=== PATIENT | male | born 1965 | race Caucasian/White ===

== ENCOUNTER 2016-11-15 15:04 | Inpatient (IN) | payer OTHER ==
[~2016-11-15] VITALS: Ht 167.6 cm; Wt 53.2 kg
[~2016-11-15 15:04] MED LIST: PERC5TAB12 PO
[2016-11-15 15:28] VITALS: BP 142/111; PULSE 91; RESP 12; TEMP 98.8; O2SAT 98
[2016-11-15] MEDS ORDERED: SODIUM CHLOR 0.9% 1000 ML INJ 1,000 ML IV SCH (16:23)
[2016-11-15] MEDS ORDERED: SODIUM CHLORIDE 0.9% FLUSH 10 ML FLUSH IV FLUSH PRN ×2 (16:30→18:30)
[2016-11-15 16:44] LABS: AUTOMATED NEUTROPHIL # 3.3 TH/MM3 (1.8-7.7); BASOPHIL # 0.2 TH/MM3 (0-0.2); BASOPHIL % 4.6 % (0.0-2.0); EOSINOPHIL # 0.1 TH/MM3 (0-0.4); EOSINOPHIL % 1.6 % (0.0-4.0); HEMATOCRIT 45.2 % (39.0-51.0); HEMO FLAGS DIFF FINAL; LYMPH % 21.4 % (9.0-44.0); LYMPHOCYTE # 1.1 TH/MM3 (1.0-4.8); MEAN CELL VOLUME 101.1 FL (80.0-100.0); MEAN CORPUSCULAR HEMOGLOBIN 34.3 PG (27.0-34.0); MONO % 9.7 % (0.0-8.0); NEUT % 62.7 % (16.0-70.0); PLATELET COUNT 267 TH/MM3 (150-450); RED BLOOD COUNT 4.47 MIL/MM3 (4.50-5.90); RED CELL DISTRIBUTION WIDTH 14.2 % (11.6-17.2); WHITE BLOOD COUNT 5.2 TH/MM3 (4.0-11.0)
--- NOTE | 2016-11-15 16:46 | PD ---
HPI Chief Complaint: ENT Complaint Time Seen by Provider: 16:33 Travel History International Travel<30 days: No Contact w/Intl Traveler<30days: No Traveled to known affect area: No History of Present Illness HPI 51-year-old male presents to the emergency department for evaluation of tender painful mass to left neck for 2 months. Patient states that the mass was smaller when he noticed about 2 months ago. States it has been getting larger and more painful over the past 2 months. States that today when eating he noticed that he has some pain with swallowing. He denies any fever, chills, nausea, vomiting, diarrhea, chest pain, shortness of breath, difficulty breathing. He states he has a smoking history of more than 30 years. Denies any other medical conditions. No other complaints. PFSH Past Medical History Medical History: Denies Significant Hx Arthritis: No Blood Disorders: No Heart Rhythm Problems: No Cancer: No Cardiovascular Problems: Yes High Cholesterol: No Chest Pain: No Congestive Heart Failure: No Diminished Hearing: No Endocrine: No Genitourinary: No Hypertension: No Immune Disorder: No Musculoskeletal: Yes (LEFT THUMB DISLOCATE) Neurologic: No Reproductive: No Respiratory: No Immunizations Current: Yes Myocardial Infarction: No Tetanus Vaccination: > 5 Years Influenza Vaccination: No Past Surgical History Abdominal Surgery: Yes (RIGHT HERNIA REPAIR) Cardiac Surgery: Yes (HEART SURGERY AN ON AORTIC [id number]) Ear Surgery: No Endocrine Surgery: No Eye Surgery: Yes Genitourinary Surgery: No Gynecologic Surgery: No Oral Surgery: No Thoracic Surgery: No Other Surgery: Yes (CABG) Social History Alcohol Use: No (Socially) Tobacco Use: Yes (1 PPD) Substance Use: No Allergies-Medications (Allergen,Severity, Reaction): Coded Allergies: No Known Allergies (Verified , 11/15/16) Reported Meds & Prescriptions Reported Meds & Active Scripts Active No Active Prescriptions or Reported Medications Review of Systems Except as stated in HPI: all other systems reviewed are Neg Physical Exam Narrative GENERAL: Well-nourished and well-developed pleasant patient in no acute distress who is nontoxic appearing. SKIN: Warm and dry. HEAD: Normocephalic and atraumatic. EYES: No injection, drainage, or hyphema noted. PERRLA. EOMI. ENT: No nasal drainage noted. Oropharynx is clear and the TMs are normal with good landmarks. NECK: Supple and the trachea is midline. Left anterior neck with tender mass approximately 7 cm in diameter. There is a mass about 2 cm in diameter to the posterior neck patient reports has been present for years. CARDIOVASCULAR: Regular rate and rhythm. RESPIRATORY: Breath sounds are equal bilaterally with no accessory muscle use, wheezing, rhonchi, or crackles. GASTROINTESTINAL: Abdomen is soft, non-tender, and nondistended. MUSCULOSKELETAL: No obvious deformities, swelling, cyanosis, or ecchymosis is present throughout the upper and lower extremities. Patient has full range of motion without any signs of neurovascular compromise. NEUROLOGICAL: Awake, alert, and oriented. Normal speech and gait. Cranial nerves are grossly intact. Data Data Last Documented VS Vital Signs Date Time Temp Pulse Resp B/P Pulse Ox O2 Delivery O2 Flow Rate FiO2 11/15/16 17:35 71 18 164/93 98 Room Air 11/15/16 15:28 98.8 Orders Basic Metabolic Panel (Bmp) (11/15/16 16:23) Complete Blood Count With Diff (11/15/16 16:23) Iv Access Insert/Monitor (11/15/16 16:23) Sodium Chlor 0.9% 1000 Ml Inj (Ns 1000 M (11/15/16 16:23) Sodium Chloride 0.9% Flush (Ns Flush) (11/15/16 16:30) Ct Soft Tiss Neck W Iv Cont (11/15/16 ) Iohexol 350 Inj (Omnipaque 350 Inj) (11/15/16 17:30) Admit To Inpatient (11/15/16 ) Vital Signs (Adult) Q4H (11/15/16 18:26) Activity Oob With Assistance (11/15/16 18:26) Diet Regular Basic (11/15/16 Dinner) Sodium Chloride 0.9% Flush (Ns Flush) (11/15/16 18:30) Sodium Chloride 0.9% Flush (Ns Flush) (11/15/16 21:00) Acetaminophen (Tylenol) (11/15/16 18:30) Ondansetron Inj (Zofran Inj) (11/15/16 18:30) Magnesium Hydroxide Liq (Milk Of Magnesi (11/15/16 18:30) Basic Metabolic Panel (Bmp) (11/16/16 06:00) Complete Blood Count With Diff (11/16/16 06:00) Scd Bilateral/Knee High SWAPNIL.BID (11/15/16 18:26) Naloxone Inj (Narcan Inj) (11/15/16 18:30) Oxycodone-Acetamin 5-325 Mg (Percocet (11/15/16 18:30) Hydromorphone Pf Inj (Dilaudid Pf Inj) (11/15/16 18:30) Consult Ent (11/15/16 ) Inpatient Certification (11/15/16 ) ^ Other Nursing Orders (11/15/16 18:33) Admit Order (Ed Use Only) (11/15/16 18:33) Labs Laboratory Tests Test 11/15/16 16:30 White Blood Count 5.2 TH/MM3 Red Blood Count 4.47 MIL/MM3 Hemoglobin 15.4 GM/DL Hematocrit 45.2 % Mean Corpuscular Volume 101.1 FL Mean Corpuscular Hemoglobin 34.3 PG Mean Corpuscular Hemoglobin 34.0 % Concent Red Cell Distribution Width 14.2 % Platelet Count 267 TH/MM3 Mean Platelet Volume 7.5 FL Neutrophils (%) (Auto) 62.7 % Lymphocytes (%) (Auto) 21.4 % Monocytes (%) (Auto) 9.7 % Eosinophils (%) (Auto) 1.6 % Basophils (%) (Auto) 4.6 % Neutrophils # (Auto) 3.3 TH/MM3 Lymphocytes # (Auto) 1.1 TH/MM3 Monocytes # (Auto) 0.5 TH/MM3 Eosinophils # (Auto) 0.1 TH/MM3 Basophils # (Auto) 0.2 TH/MM3 CBC Comment DIFF FINAL Differential Comment Sodium Level 139 MEQ/L Potassium Level 3.9 MEQ/L Chloride Level 105 MEQ/L Carbon Dioxide Level 27.4 MEQ/L Anion Gap 7 MEQ/L Blood Urea Nitrogen 6 MG/DL Creatinine 0.86 MG/DL Estimat Glomerular Filtration 94 ML/MIN Rate Random Glucose 93 MG/DL Calcium Level 9.3 MG/DL [facility] Medical Decision Making Medical Screen Exam Complete: Yes Emergency Medical Condition: Yes Differential Diagnosis Abscess versus cyst versus malignancy Narrative Course 51-year-old male presents to the emergency department for evaluation of tender mass in the left side of neck. Patient is afebrile, vital signs are stable. He 's had this mass on the left side of his neck for about 2-3 months. It's been getting larger and more painful. He has lymphadenopathy on his left posterior neck that he is reporting has been present for several years but has gotten larger recently. IV access is obtained, labs were drawn and sent. CT soft tissue of the neck has been ordered and is pending. CBC and BMP are unremarkable. CT of the neck shows a mass in the left piriform sinus suspicious for neoplasm with malignant appearing metastatic adenopathy on the left. Almost 50% left internal carotid stenosis noted. 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 I did discuss all findings with the patient. He'll be admitted to the medicine service for further workup of this new finding. Physician Communication Physician Communication I spoke with Dr. Major [facility] who agrees to admit the patient to his service. Diagnosis Primary Impression: Neck mass Additional Impression: Metastatic disease Admitting Information Admitting Physician Requests: Admit Scripts No Active Prescriptions or Reported Meds Patricia Campuzano Nov 15, 2016 16:46 Patricia Campuzano Nov 15, 2016 16:46
[2016-11-15 17:00] LABS: POTASSIUM 3.9 MEQ/L (3.5-5.1)
[2016-11-15 17:03] LABS: BICARBONATE 27.4 MEQ/L (21.0-32.0)
[2016-11-15] MEDS ORDERED: IOHEXOL 350 MG/ML 10 ML VIAL (for RAD DIAG) IV ONE (17:30)
[2016-11-15 17:35] VITALS: BP 164/93; PULSE 71; RESP 18; O2SAT 98
--- NOTE | 2016-11-15 17:50 | RADHPO ---
EXAM DATE/TIME: 11/15/2016 17:13 [place] COMPARISON: No previous studies available for comparison. INDICATIONS : Left neck mass. Evaluate for abscess. IV CONTRAST: 60 cc Omnipaque 350 (iohexol) IV RADIATION DOSE: 13.31 CTDIvol (mGy) MEDICAL HISTORY : Cardiovascular disease. SURGICAL HISTORY : Inguinal hernia repair. Aortic valve surgery as . ENCOUNTER: Initial ACUITY: 2 months PAIN SCALE: 5/10 LOCATION: Left neck TECHNIQUE: Volumetric scanning of the neck was performed. Using automated exposure control and adjustment of th e mA and/or kV according to patient size, radiation dose was kept as low as reasonably achievable to obtain optimal diagnostic quality images. FINDINGS: There is adenopathy on the left side group III jugular chain the largest one measures 2.9 cm in size is suspicious for metastatic disease. The parotid glands, submandibular glands, thyroid glands appear intact. There is soft tissue mass in the region of the peripheral sinus on the left measures 1.5 cm in size. CONCLUSION: 1. There is mass in the piriform sinus on the left suspicious for neoplastic process with malignant a ppearing metastatic adenopathy on the left side of the neck. 2. Not mentioned above significant atherosclerotic plaquing of the left internal carotid artery with almost 50% stenosis. Fernando Sparrow MD on November 15, 2016 at 17:43 Board Certified Radiologist. This report was verified electronically.
[2016-11-15] MEDS ORDERED: MAGNESIUM HYDROXIDE SUSP 30 ML CUP PO PRN (18:30)
[2016-11-15] MEDS ORDERED: ACETAMINOPHEN 325 MG TAB PO PRN (18:30)
[2016-11-15] MEDS ORDERED: NALOXONE HCL 0.4 MG/ML AMP IV PRN (18:30)
[2016-11-15] MEDS ORDERED: ONDANSETRON HCL 4 MG/2 ML VIAL IVP PRN (18:30)
[2016-11-15] MEDS: SODIUM CHLORIDE 0.9% FLUSH 10 ML FLUSH IV FLUSH SCH (20:23)
[2016-11-15 20:27] VITALS: BP 162/114; PULSE 74; RESP 18; O2SAT 99
[2016-11-15] MEDS ORDERED: METOPROLOL TARTRATE 25 MG TAB PO ONE (21:15)
--- NOTE | 2016-11-15 23:43 | HHI.HP ---
HPI Service [facility] Hospitalists Primary Care Physician No Primary Care Physician Admission Diagnosis Neck Mass, Metastatic Adenopathy Diagnoses: (1) Pyriform sinus mass (2) Adenopathy (3) Left carotid artery stenosis (4) Alcohol abuse (5) Tobacco abuse Chief Complaint: painful swallowing, left neck swelling Travel History International Travel<30 Days: No Contact w/Intl Traveler <30 Da: No Traveled to Known Affected Are: No History of Present Illness Mr. Tierney is a 51 year-old male with a history of alcohol abuse and tobacco abuse who presented to the emergency room complaining of painful swallowing and left neck swelling on 11/15/[address] [place] was performed and showed mass in the form sinus on the left suspicious for neoplastic process malignant appearing adenopathy. The patient was transferred to [facility] for further evaluation and treatment. The patient is seen in his hospital room. He is very pleasant but somewhat anxious and appears tremulous at the time of my visit. He admits to daily alcohol consumption of at least 2-3 beers a day and states that on the weekend he can drink almost a 12 pack a day. He is requesting something to help him sleep. He denies any history of seizures including seizures related to alcohol withdrawal. In regards to his presenting complaint, the patient states that around mid July 2016, he noticed a small lump on the left side of his neck that was about the size of a marble. He states that it has progressively enlarged and become tender. He came to the emergency room today because while he was eating lunch with his boss, he began to notice extreme pain when taking large bites of a hamburger. He noticed that it wasn't painful when he ate smaller bites. He denies dysphagia and reports only odynophagia. He has left neck pain that is currently rated 7 out of 10 on the pain scale. He states that this morning, when he woke up, he was gasping for air and thought this was related to a panic attack. Symptoms (gasping for air) resolved spontaneously. He reports a > 15 pound weight loss over the last 6 months that was unintentional and states he's been unable to gain weight. He denies any history of diabetes mellitus hypertension, coronary artery disease , atrial fibrillation, respiratory disease such as COPD or emphysema, liver or kidney problems, stomach or intestinal problems, urinary problems, thyroid dysfunction, seizures, or problems with blood clots such as: DVT, PE, or CVA. He denies any recent fever, chills, chest pain, hemoptysis, nausea, vomiting, diarrhea, constipation, black or tarry stools, dysuria, hematuria, dizziness, syncope, or paresthesias. . 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 Past Surgical History Open heart surgery at age 8 y/o to repair aorta - states Mesh was used to hold it open - sounds like possible coarctation of the aorta repair right inguinal surgery 12/07/2003 - Dr. Thomason right facial fracture repairs Right ankle surgery 20 years ago - still requires a small brace to maintain alignment and comfort. . Reported Medications Reported Meds & Active Scripts Active No Active Prescriptions or Reported Medications . Allergies: Coded Allergies: No Known Allergies (Verified , 11/15/16) Active Ordered Medications Current Medications Sodium Chloride (NS 1000 ml Inj) 1,000 ml @ 1,000 mls/hr Q1H IV Last administered on 11/15/16 16:40; Start 11/15/16 at 16:23; Stop 11/15/16 at 17:22 ; Status DC Sodium Chloride (NS Flush) 2 ml UNSCH PRN IV FLUSH FLUSH AFTER USING IV ACCESS ; Start 11/15/16 at 16:30 Iohexol (Omnipaque 350 Inj) 65 ml STK-MED ONCE IV Last administered on 17:30; Start 11/15/16 at 17:30; Stop 11/15/16 at 17:31; Status DC Sodium Chloride (NS Flush) 2 ml UNSCH PRN IV FLUSH FLUSH AFTER USING IV ACCESS ; Start 11/15/16 at 18:30 Sodium Chloride (NS Flush) 2 ml BID IV FLUSH Last administered on 11/15/16 20: 23; Start 11/15/16 at 21:00 Acetaminophen (Tylenol) 650 mg Q4H PRN PO Fever, headache, pain 1-4; Start at 18:30 Ondansetron HCl (Zofran Inj) 4 mg Q6H PRN IVP NAUSEA OR VOMITING; Start at 18:30 Magnesium Hydroxide (Milk Of Magnesia Liq) 30 ml Q12H PRN PO CONSTIPATION; Start 11/15/16 at 18:30 Naloxone HCl (Narcan Inj) 0.4 mg UNSCH PRN IV SEE LABEL COMMENTS; Start at 18:30 Oxycodone/ Acetaminophen (Percocet 5-325 Mg) 1 tab Q6H PRN PO PAIN SCALE 5 TO 10; Start 11/15/16 at 18:30 Hydromorphone HCl (Dilaudid Pf Inj) 0.5 mg Q4H PRN IV PUSH BREAKTHROUGH PAIN; Start 11/15/16 at 18:30 Metoprolol Tartrate (Lopressor) 25 mg ONCE ONCE PO Last administered on 21:17; Start 11/15/16 at 21:15; Stop 11/15/16 at 21:16; Status DC . Family History Denies family history of cancer, diabetes, heart disease . 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 Physical Exam Vital Signs Vital Signs Date Time Temp Pulse Resp B/P Pulse Ox O2 Delivery O2 Flow Rate FiO2 11/15/16 20:27 74 18 162/114 99 Room Air 11/15/16 17:35 71 18 164/93 98 Room Air 11/15/16 15:35 16 11/15/16 15:28 98.8 91 12 142/111 98 Physical Exam GENERAL: This is thin, disheveled, tremulous patient, who appears slightly anxious. SKIN: No rashes. Cool and dry. Multiple small bruises noted on bilateral forearms. HEAD: Atraumatic. Normocephalic. EYES: No scleral icterus. No injection or drainage. ENT: Nose without bleeding, purulent drainage. NECK: Left occipital region with what appears to be a lipoma. Left neck with firm mass palpable, tender to touch. Did not palpate left lymph nodes due to patient discomfort; no lymphadenopathy on right. CARDIOVASCULAR: Regular rate and rhythm without murmurs, gallops, or rubs. RESPIRATORY: Diminished air exchange bilaterally at bases. Breath sounds equal bilaterally. No wheezes, rales, or rhonchi. GASTROINTESTINAL: Abdomen soft, non-tender, nondistended. No guarding. MUSCULOSKELETAL: Extremities without clubbing, cyanosis, or edema. No calf tenderness. Right ankle with small brace in place. NEUROLOGICAL: Awake and alert. Motor and sensory grossly within normal limits. Normal speech. . Laboratory Laboratory Tests Test 11/15/16 16:30 White Blood Count 5.2 Red Blood Count 4.47 Hemoglobin 15.4 Hematocrit 45.2 Mean Corpuscular Volume 101.1 Mean Corpuscular Hemoglobin 34.3 Mean Corpuscular Hemoglobin 34.0 Concent Red Cell Distribution Width 14.2 Platelet Count 267 Mean Platelet Volume 7.5 Neutrophils (%) (Auto) 62.7 Lymphocytes (%) (Auto) 21.4 Monocytes (%) (Auto) 9.7 Eosinophils (%) (Auto) 1.6 Basophils (%) (Auto) 4.6 Neutrophils # (Auto) 3.3 Lymphocytes # (Auto) 1.1 Monocytes # (Auto) 0.5 Eosinophils # (Auto) 0.1 Basophils # (Auto) 0.2 CBC Comment DIFF FINAL Differential Comment Sodium Level 139 Potassium Level 3.9 Chloride Level 105 Carbon Dioxide Level 27.4 Anion Gap 7 Blood Urea Nitrogen 6 Creatinine 0.86 Estimat Glomerular Filtration 94 Rate Random Glucose 93 Calcium Level 9.3 Result Diagram: 11/15/16 1630 11/15/16 1630 Imaging Last Impressions Neck CT 11/15/16 0000 Signed Impressions: Service Date/Time: Tuesday, November 15, 2016 17:13 - CONCLUSION: 1. There is mass in the piriform sinus on the left suspicious for neoplastic process with malignant appearing metastatic adenopathy on the left side of the neck. 2. Not mentioned above significant atherosclerotic plaquing of the left internal carotid artery with almost 50%% stenosis. Fernando Sparrow MD Assessment and Plan Problem List: (1) Pyriform sinus mass ICD Code: R22.0 Status: Acute (2) Adenopathy ICD Code: R59.1 Status: Acute (3) Left carotid artery stenosis ICD Code: I65.22 Status: Acute (4) Tobacco abuse ICD Code: Z72.0 Status: Acute (5) Alcohol abuse ICD Code: F10.10 Status: Acute Assessment and Plan Mr. Tierney is a 51 year-old male who presented to the emergency room complaining of painful swallowing and left neck swelling on 11/15/[address] [place]ck [address] was performed and showed mass in the form sinus on the left suspicious for neoplastic process malignant appearing adenopathy. The patient was transferred to [facility] for further evaluation and treatment. Left pyriform sinus mass suspicious for neoplastic process with malignant appearing adenopathy on left side of neck - consult ENT - assistance appreciated - patient will need a biopsy for tissue diagnosis - Dr. Perez - assistance appreciated - Dilaudid 0.5 mg IV push every 4 hours as needed for pain level 6 through 10 and Percocet 5/325 every 6 hours as needed for pain level I through 5 Left carotid artery stenosis - will need outpatient follow up upon discharge Tobacco abuse - Cessation strongly advised - Declines nicotine patch Alcohol abuse Risk for alcohol withdrawal - CIWA protocol ordered to prevent alcohol withdrawal - Thiamine, multivitamin, folic acid acid supplementation - Seizure precautions - Accu-Cheks before meals and at bedtime - Monitor vital signs every 4 hours - Case management consultation DVT prophylaxis - SCDs . Discussed Condition With Patient and patient's RN . Physician Certification 2 Midnight Certification Type: Admission for Inpatient Services Order for Inpatient Services The services are ordered in accordance with Medicare regulations or non- Medicare payer requirements, as applicable. In the case of services not specified as inpatient-only, they are appropriately provided as inpatient services in accordance with the 2-midnight benchmark. Estimated LOS (days): 3 days is the estimated time the patient will need to remain in the hospital, assuming treatment plan goals are met and no additional complications. Post-Hospital Plan: Home Gay More Nov 15, 2016 23:43
[2016-11-16] VITALS (8 sets, daily range): BP systolic 136–192; BP diastolic 86–95; PULSE 52–92; RESP 16–18; TEMP 97.3–98.2; O2SAT 97–100
[2016-11-16] MEDS ORDERED: LORazepam 1 MG TAB PO PRN (00:15)
[2016-11-16] MEDS ORDERED: LORazepam 2 MG TAB PO PRN (00:15)
[2016-11-16] MEDS ORDERED: HALOPERIDOL LACTATE 5 MG/ML AMP IM PRN (00:15)
[2016-11-16] MEDS ORDERED: LORazepam 2 MG/ML VIAL IV PUSH PRN ×4 (00:15)
[2016-11-16] MEDS ORDERED: FLUMAZENIL 0.5 MG/5 ML VIAL IV PUSH PRN (00:15)
[2016-11-16] MEDS: oxyCODONE/ACETAMINOPHEN 5 MG/325 MG TAB PO PRN (00:52)
[2016-11-16] MEDS: THIAMINE INJ 100 MG in SODIUM CHLORIDE 0.9% INJ 100 ML IV SCH (01:10)
[2016-11-16] MEDS: MULTIVITAMIN INJ 10 ML, FOLIC ACID INJ 1 MG in SODIUM CHLORID 0.9% 500 ML INJ 500 ML IV SCH (01:10)
[2016-11-16 07:42] LABS: AUTOMATED NEUTROPHIL # 3.6 TH/MM3 (1.8-7.7); BASOPHIL # 0.1 TH/MM3 (0-0.2); BASOPHIL % 1.2 % (0.0-2.0); EOSINOPHIL # 0.1 TH/MM3 (0-0.4); EOSINOPHIL % 2.4 % (0.0-4.0); HEMATOCRIT 42.8 % (39.0-51.0); HEMO FLAGS DIFF FINAL; LYMPH % 21.4 % (9.0-44.0); LYMPHOCYTE # 1.2 TH/MM3 (1.0-4.8); MEAN CELL VOLUME 102.5 FL (80.0-100.0); MEAN CORPUSCULAR HEMOGLOBIN 34.4 PG (27.0-34.0); MEAN CORPUSCULAR HGB CONC 33.5 % (32.0-36.0); MONO % 13.7 % (0.0-8.0); NEUT % 61.3 % (16.0-70.0); PLATELET COUNT 226 TH/MM3 (150-450); RED BLOOD COUNT 4.18 MIL/MM3 (4.50-5.90); RED CELL DISTRIBUTION WIDTH 14.9 % (11.6-17.2); WHITE BLOOD COUNT 5.8 TH/MM3 (4.0-11.0)
[2016-11-16] MEDS: SODIUM CHLORIDE 0.9% FLUSH 10 ML FLUSH IV FLUSH SCH ×2 (07:55→21:04)
[2016-11-16] MEDS: HYDROmorphone HCL PF 1 MG/ML VIAL IV PUSH PRN ×4 (07:56→21:04)
[2016-11-16 08:11] LABS: BICARBONATE 28.3 MEQ/L (21.0-32.0); POTASSIUM 3.6 MEQ/L (3.5-5.1)
--- NOTE | 2016-11-16 08:48 | PD.CONS ---
History of Present Illness Service ENT Consult Requested By ED Reason for Consult Left neck mass. Primary Care Physician No Primary Care Physician Diagnoses: History of Present Illness 51 year old male presents with several months left neck mass and neck pain. More recently has had dysphagia for large food boluses and mild odynophagia. Presented to [place] ED after trouble swallowing a hamburger. CT there shows a left pyriform sinus mass with left neck adenopathy. Has a significant node, amenable to CT biopsy. Review of Systems Ears, nose, mouth, throat: COMPLAINS OF: Throat pain, Hoarseness, Odynophagia, DENIES: Hearing loss, Vertigo, Nasal discharge, Oral lesions Past Family Social History Allergies: Coded Allergies: No Known Allergies (Verified , 11/15/16) Physical Exam Vital Signs Vital Signs Date Time Temp Pulse Resp B/P Pulse Ox O2 Delivery O2 Flow Rate FiO2 11/16/16 04:00 97.5 58 17 167/95 98 11/16/16 00:28 52 11/16/16 00:00 97.9 60 18 192/90 100 11/15/16 20:27 74 18 162/114 99 Room Air 11/15/16 17:35 71 18 164/93 98 Room Air 11/15/16 15:35 16 11/15/16 15:28 98.8 91 12 142/111 98 Physical Exam GENERAL: This is a well-nourished, well-developed patient, in no apparent distress. SKIN: No rashes, ecchymoses or lesions. Cool and dry. HEAD: Atraumatic. Normocephalic. No temporal or scalp tenderness. EYES: Pupils equal round and reactive. Extraocular motions intact. No scleral icterus. No injection or drainage. ENT: Nose without bleeding, purulent drainage or septal hematoma. Throat without erythema, tonsillar hypertrophy or exudate. Uvula midline. Airway patent. NECK: Trachea midline. Tender left neck mass adjacent to larynx. Laboratory Laboratory Tests Test 11/15/16 11/16/16 16:30 06:10 White Blood Count 5.2 5.8 Red Blood Count 4.47 4.18 Hemoglobin 15.4 14.3 Hematocrit 45.2 42.8 Mean Corpuscular Volume 101.1 102.5 Mean Corpuscular Hemoglobin 34.3 34.4 Mean Corpuscular Hemoglobin 34.0 33.5 Concent Red Cell Distribution Width 14.2 14.9 Platelet Count 267 226 Mean Platelet Volume 7.5 8.3 Neutrophils (%) (Auto) 62.7 61.3 Lymphocytes (%) (Auto) 21.4 21.4 Monocytes (%) (Auto) 9.7 13.7 Eosinophils (%) (Auto) 1.6 2.4 Basophils (%) (Auto) 4.6 1.2 Neutrophils # (Auto) 3.3 3.6 Lymphocytes # (Auto) 1.1 1.2 Monocytes # (Auto) 0.5 0.8 Eosinophils # (Auto) 0.1 0.1 Basophils # (Auto) 0.2 0.1 CBC Comment DIFF FINAL DIFF FINAL Differential Comment Sodium Level 139 137 Potassium Level 3.9 3.6 Chloride Level 105 101 Carbon Dioxide Level 27.4 28.3 Anion Gap 7 8 Blood Urea Nitrogen 6 6 Creatinine 0.86 0.76 Estimat Glomerular Filtration 94 108 Rate Random Glucose 93 83 Calcium Level 9.3 8.7 Result Diagram: 11/16/16 0610 11/16/[address], left pyriform sinus mass, left neck adenopathy. Carotid narrowing. 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 Will order. Medical Oncology and Radfiation Oncology consults requested. Reviewed this with patient. Will need patient services to help get established. Sundar Perez MD Nov 16, 2016 08:48
[2016-11-16 10:36] LABS: APTT (PATIENT) 35.6 SEC (24.3-30.1); PROTHROMBIN TIME - PATIENT 11.5 SEC (9.8-11.6)
--- NOTE | 2016-11-16 12:39 | HHI.PR ---
Subjective Remarks Patient seen for follow up painful neck mass. 11/16/2016-patient seen and evaluated this AM. SBP up to the 170s. Other vitals WNL. He does complain of left-sided neck pain this AM. States this is well controlled with pain medication. Has difficulty swallowing, as well, per his baseline. No choking episodes. Patient has no other complaints at this time. He does feel mildly tremulous from alcohol WD. Denies any visual hallucinations. Denies any SOB or CP. Objective Vitals Vital Signs Date Time Temp Pulse Resp B/P Pulse Ox O2 Delivery O2 Flow Rate FiO2 11/16/16 08:00 52 11/16/16 08:00 97.8 56 18 171/86 99 11/16/16 04:00 97.5 58 17 167/95 98 11/16/16 00:28 52 11/16/16 00:00 97.9 60 18 192/90 100 11/15/16 20:27 74 18 162/114 99 Room Air 11/15/16 17:35 71 18 164/93 98 Room Air 11/15/16 15:35 16 11/15/16 15:28 98.8 91 12 142/111 98 I/O 11/15/16 11/15/16 11/15/16 11/16/16 11/16/16 11/16/16 07:00 15:00 23:00 07:00 15:00 23:00 Intake Total 1500 ml 480 ml Balance 1500 ml 480 ml Intake Oral 500 ml 480 ml IV Total 1000 ml # Voids 2 Result Diagram: 11/16/16 0610 11/16/16 0610 Objective Remarks GENERAL: This is thin, disheveled, and sitting up in bed. In NAD. SKIN: No rashes. Cool and dry. Multiple small bruises noted on bilateral forearms. NECK: Left occipital region with what appears to be a lipoma. Left neck with ~ 3 cm, firm mass palpable, tender to touch. CARDIOVASCULAR: Regular rate and rhythm without murmurs, gallops, or rubs. RESPIRATORY: Diminished air exchange bilaterally at bases. Wheezing at the left lung base. Otherwise no adventitious sounds. GASTROINTESTINAL: Abdomen soft, non-tender, nondistended. No guarding. MUSCULOSKELETAL: Extremities without clubbing, cyanosis, or edema. No calf tenderness. Right ankle with small brace in place. NEUROLOGICAL: Awake and alert. Motor and sensory grossly within normal limits. Normal speech. 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 Perez - assistance appreciated. They have also ordered heme-onc consult. -concern for swallowing difficulty. Will put in speech eval today. -dilaudid 0.5 mg IV push every 4 hours as needed for pain level 6 through 10 and Percocet 5/325 every 6 hours as needed for pain level I through 5 -will treat with decadron 8mg IV x1 today. Switch to PO steroids tomorrow. 2. Left carotid artery stenosis - will need outpatient follow up upon discharge 3. Tobacco abuse -suspect patient has COPD. Will place order for PRN Duoneb. Steroids, as above. -cessation strongly advised -declines nicotine patch 4. Alcohol abuse - Risk for alcohol withdrawal - [facility] protocol ordered to prevent alcohol withdrawal - Thiamine, multivitamin, folic acid acid supplementation - Seizure precautions - Accu-Cheks before meals and at bedtime - Monitor vital signs every 4 hours - Case management consultation 5. DVT prophylaxis - SCDs Matt Trejo MD R3 Nov 16, 2016 12:39
--- NOTE | 2016-11-16 12:40 | MB ---
cc: HELEN CARRIZALES MD DATE OF CONSULTATION: 11/16/2016 REASON FOR CONSULTATION: Mr. Tierney is a 51-year-old male with history of alcohol consumption, tobacco consumption, recently difficulty swallowing a Hamburger on , also has noted increasing neck mass on the left side of his neck, it is painful. Recently presented at the emergency room. CT imaging consistent with head neck cancer. Biopsy ordered. CT findings head neck suspicious for a primary head neck cancer. The hypopharynx with ipsilateral node metastasis. We discussed likelihood of definitive chemoradiation course. We discussed potential toxicities. We discussed stomach tube. We discussed an evaluation by oral surgeon or dentist to assess teeth condition. We will schedule follow-up with us as an outpatient to consider further workup including nasopharyngoscopy. We discussed potential toxicities. We discussed additional staging could be done as an outpatient or inpatient, CT of the chest. We discussed potential conduction chemotherapy while we await the workup evaluation. PLAN: Outpatient follow-up to be made in about a week. MD DIALLO Bartholomew/jaswant /11:21 AM /12:26 PM MTDLucia
[2016-11-16] MEDS ORDERED: RESP: ALBUTEROL 2.5 MG/IPRATROPIUM 0.5 MG NEB (PRN) NEB (14:00)
[2016-11-16] MEDS ORDERED: DEXAMETHASONE SOD PHOS 4 MG/ML VIAL IV PUSH ONE (14:00)
[2016-11-17] VITALS (8 sets, daily range): BP systolic 148–162; BP diastolic 80–97; PULSE 52–77; RESP 16–20; TEMP 97.1–98.4; O2SAT 97–98
[2016-11-17] MEDS: THIAMINE INJ 100 MG in SODIUM CHLORIDE 0.9% INJ 100 ML IV SCH ×2 (01:23→23:50)
[2016-11-17] MEDS: HYDROmorphone HCL PF 1 MG/ML VIAL IV PUSH PRN ×5 (01:24→23:09)
[2016-11-17] MEDS: MULTIVITAMIN INJ 10 ML, FOLIC ACID INJ 1 MG in SODIUM CHLORID 0.9% 500 ML INJ 500 ML IV SCH ×2 (01:27→23:50)
[2016-11-17 07:07] LABS: BASOPHIL % 0.1 % (0.0-2.0); EOSINOPHIL % 0.1 % (0.0-4.0); HEMATOCRIT 44.2 % (39.0-51.0); HEMO FLAGS DIFF FINAL; LYMPH % 8.4 % (9.0-44.0); LYMPHOCYTE # 0.7 TH/MM3 (1.0-4.8); MEAN CELL VOLUME 103.1 FL (80.0-100.0); MEAN CORPUSCULAR HGB CONC 33.9 % (32.0-36.0); MONO % 8.2 % (0.0-8.0); NEUT % 83.2 % (16.0-70.0); PLATELET COUNT 240 TH/MM3 (150-450); RED BLOOD COUNT 4.29 MIL/MM3 (4.50-5.90); RED CELL DISTRIBUTION WIDTH 14.7 % (11.6-17.2); WHITE BLOOD COUNT 8.4 TH/MM3 (4.0-11.0)
[2016-11-17 07:44] LABS: ALKALINE PHOSPHATASE 80 U/L (45-117); ALT (GPT) 19 U/L (12-78); ANION GAP 9 MEQ/L (5-15); AST (GOT) 17 U/L (15-37); BICARBONATE 27.7 MEQ/L (21.0-32.0); BLOOD UREA NITROGEN 7 MG/DL (7-18); CHLORIDE 99 MEQ/L (98-107); GLOMERULAR FILTRATION RATE 119 ML/MIN (>89); POTASSIUM 3.7 MEQ/L (3.5-5.1); SODIUM (NA) 136 MEQ/L (136-145); TOTAL BILIRUBIN ADULT 0.5 MG/DL (0.2-1.0)
[2016-11-17] MEDS: SODIUM CHLORIDE 0.9% FLUSH 10 ML FLUSH IV FLUSH SCH ×2 (09:10→23:05)
[2016-11-17] MEDS: DEXAMETHASONE 4 MG TAB PO SCH (09:10)
--- NOTE | 2016-11-17 09:16 | PD.CONS ---
History of Present Illness Service Hematology/Oncology Consult Requested By ENT surgery Reason for Consult CT findings indicating mass involving the left piriformis sinus associated with malignant appearing left-sided cervical lymphadenopathy. Findings concerning for malignancy. Primary Care Physician No Primary Care Physician Diagnoses: History of Present Illness Chief complaint: Mass involving the left mid neck which has been gradually growing since July 2016. Pain with swallowing for the past 4 weeks. Difficulty breathing usually in the mornings. 15 pound weight loss over the past 1 month. History of present illness: Mr. Tierney is a very pleasant 51-year-old male with an extensive past history of tobacco some and daily alcohol consumption (he reports drinking 2-3 beers daily and has been doing so since he was 16 and he smokes 1 pack a day and has been doing so since he was 16 years old). Patient reports being in his usual state of health up until early July 2016, he began to notice initially what was a marble-sized "lump "along the left side of his neck on the side of his Herman's apple. This lesion was not painful initially. The mass gradually grew along the left side of the neck and is now close to 4 cm in size, he also began to notice increasing difficulty breathing and soreness on the inside of his throat when he swallowed. He reported these symptoms to his family who advised him to be evaluated at the emergency department. He initially presented to the [facility] ER where he underwent CT imaging of the neck which revealed a mass involving the left piriform sinus associate with malignant-appearing lymphadenopathy along the level II cervical lymph node chains on the left side. He was a value by ENT surgery, though an endoscopic examination with flexible laryngoscopy was not performed the patient was recommended evaluation by medical oncology and radiation oncology for likely diagnosis of hypopharyngeal malignancy. The patient is scheduled to undergo CT-guided biopsy of the left sided cervical lymph node mass on 11/18/2016. Review of Systems Constitutional: COMPLAINS OF: Fatigue, Weight loss (15 pound), Change in appetite (decreased appetite), DENIES: Diaphoretic episodes, Fever, Weight gain , Chills, Dizziness, Night Sweats Endocrine: DENIES: Heat/cold intolerance, Polydipsia, Polyuria, Polyphagia Eyes: DENIES: Blurred vision, Diplopia, Eye inflammation, Eye pain, Vision loss , Photosensitivity, Double Vision Ears, nose, mouth, throat: COMPLAINS OF: Throat pain, Hoarseness, Odynophagia, DENIES: Tinnitus, Hearing loss, Vertigo, Nasal discharge, Oral lesions, Ear Pain, Running Nose, Epistaxis, Sinus Pain, Toothache Respiratory: COMPLAINS OF: Cough, Sputum production, DENIES: Apneas, Snoring, Wheezing, Hemoptysis, Shortness of breath Cardiovascular: DENIES: Chest pain, Palpitations, Syncope, Dyspnea on Exertion , PND, Lower Extremity Edema, Orthopnea, Claudication Gastrointestinal: COMPLAINS OF: Anorexia, DENIES: Abdominal pain, Black stools , Bloody stools, Constipation, Diarrhea, Nausea, Vomiting, Difficulty Swallowing Genitourinary: DENIES: Sexual dysfunction, Urinary frequency, Urinary incontinence, Urgency, Hematuria, Dysuria, Nocturia, Penile Discharge, Testicular Pain, Testicular Swelling Musculoskeletal: COMPLAINS OF: Joint pain (right heel fracture), DENIES: Muscle aches, Stiffness, Joint Swelling, Back pain, Neck pain Integumentary: DENIES: Abnormal pigmentation, Nail changes, Pruritus, Rash Hematologic/lymphatic: DENIES: Bruising, Lymphadenopathy Immunologic/allergic: DENIES: Eczema, Urticaria Neurologic: DENIES: Abnormal gait, Headache, Localized weakness, Paresthesias, Seizures, Speech Problems, Tremor, Poor Balance Psychiatric: COMPLAINS OF: Anxiety, DENIES: Confusion, Mood changes, Depression, Hallucinations, Agitation, Suicidal Ideation, Homicidal Ideation, Delusions Except as stated in HPI: all other systems reviewed are Neg Past Family Social History Allergies: Coded Allergies: No Known Allergies (Verified , 11/15/16) Past Medical History Personal history tobaccoism Personal history of daily alcohol consumption Facial fractures Dislocated thumb of the left hand Past Surgical History Hernia repair surgery Facial reconstruction after right-sided orbital fracture following trauma Reported Medications None Active Ordered Medications Current inpatient medications: Multivitamin IV daily Thiamine 100 mg IV daily Tylenol 650 mg by mouth every 4 hours as needed for headache Units 1 ampule every 4 hours as needed for shortness of breath or wheezing Clonidine 0.1 mg by mouth every 6 hours as needed for hypertension Dexamethasone 4 mg by mouth daily Haloperidol 2 mg IM every 15 minutes is needed for delirium tremens Hydromorphone 0.5 mg IV every 4 hours as needed for pain Ativan 1 mg by mouth every 4 hours as needed for agitation/delirium tremens Magnesium hydroxide 30 mL's by mouth every 12 hours needed for constipation Zofran 4 mg IV every 6 hours as needed for nausea and vomiting Oxycodone 1 mg by mouth every 6 hours as needed for pain Thiamine 100 mg by mouth daily Family History Mother is living and is well Biologic father: Not known Half-brother: Healthy No known oncologic diagnoses in the family. Social History Patient is single, he lives at home with his mother, he works in [employer] and also works in a [employer] factory. He has 1 adult son whom he has not seen in 20 years. The patient reports drinking 2-3 beers daily and sometimes more on weekends. He smokes 1 pack a day and has smoked since he was 16. Physical Exam Vital Signs Vital Signs Date Time Temp Pulse Resp B/P Pulse Ox O2 Delivery O2 Flow Rate FiO2 11/17/16 04:00 97.1 73 16 158/94 98 11/17/16 00:00 97.3 77 16 155/94 98 11/16/16 20:18 92 11/16/16 20:00 98.2 81 17 162/88 97 11/16/16 16:00 98.1 66 18 168/89 98 11/16/16 12:00 97.3 72 16 136/86 97 Physical Exam Gen: Middle-aged male, sitting up in bed, in no acute distress, has a pleasant disposition. He is thin built but not cachectic, he is not obviously distressed from a respiratory standpoint and speaks in full sentences. SKIN: No rashes, ecchymoses or lesions. Cool and dry. Chronic sun in smoking- related changes. HEAD: Atraumatic. Normocephalic. No temporal or scalp tenderness. EYES: Pupils equal round and reactive. Extraocular motions intact. No scleral icterus. No injection or drainage. ENT: Nose without bleeding, purulent drainage or septal hematoma. Throat without erythema, tonsillar hypertrophy or exudate. Uvula midline. Airway patent. NECK: Trachea midline. No JVD . Pathologically enlarged left level II cervical lymphadenopathy, measuring at least 3 cm. Posteriorly he has what appears to be sebaceous cysts measuring 2 cm along the posterior aspect of his neck. CARDIOVASCULAR: Regular rate and rhythm without murmurs, gallops, or rubs. RESPIRATORY: Clear to auscultation. Breath sounds equal bilaterally. No wheezes , rales, or rhonchi. GASTROINTESTINAL: Abdomen soft, non-tender, nondistended. No hepato-splenomegaly , or palpable masses. No guarding. MUSCULOSKELETAL: Extremities without clubbing, cyanosis, or edema. No joint tenderness, effusion, or edema noted. No calf tenderness. Negative Homans sign bilaterally. NEUROLOGICAL: Awake and alert. Cranial nerves II through XII intact. Motor and sensory grossly within normal limits. Five out of 5 muscle strength in all muscle groups. Normal speech. Laboratory Laboratory Tests Test 11/16/16 11/17/16 09:50 06:07 Prothrombin Time 11.5 Prothromb Time International 1.0 Ratio Activated Partial 35.6 Thromboplast Time White Blood Count 8.4 Red Blood Count 4.29 Hemoglobin 15.0 Hematocrit 44.2 Mean Corpuscular Volume 103.1 Mean Corpuscular Hemoglobin 35.0 Mean Corpuscular Hemoglobin 33.9 Concent Red Cell Distribution Width 14.7 Platelet Count 240 Mean Platelet Volume 8.4 Neutrophils (%) (Auto) 83.2 Lymphocytes (%) (Auto) 8.4 Monocytes (%) (Auto) 8.2 Eosinophils (%) (Auto) 0.1 Basophils (%) (Auto) 0.1 Neutrophils # (Auto) 7.0 Lymphocytes # (Auto) 0.7 Monocytes # (Auto) 0.7 Eosinophils # (Auto) 0.0 Basophils # (Auto) 0.0 CBC Comment DIFF FINAL Differential Comment Sodium Level 136 Potassium Level 3.7 Chloride Level 99 Carbon Dioxide Level 27.7 Anion Gap 9 Blood Urea Nitrogen 7 Creatinine 0.70 Estimat Glomerular Filtration 119 Rate Random Glucose 109 Calcium Level 9.3 Total Bilirubin 0.5 Aspartate Amino Transf 17 (AST/SGOT) Alanine Aminotransferase 19 (ALT/SGPT) Alkaline Phosphatase 80 Total Protein 7.4 Albumin 3.4 Result Diagram: 11/17/16 0611/17/[address] scan of the neck with IV contrast dated 11/15/2016: Impression: #1. A there is a mass in the piriform sinus on the left, suspicious for neoplastic process with malignant-appearing metastatic adenopathy on the left side of the neck. Significant atherosclerotic plaque in the left and internal jugular artery with almost 50% stenosis. Assessment and Plan Assessment and Plan 51-year-old male with a history of daily alcohol consumption and a [id number] history of smoking who presents the hospital with a three-month history of an enlarging left-sided neck mass, he later developed difficulty swallowing. He was evaluated at the [facility] emergency department where CT imaging of the neck indicated a mass involving the left piriform sinus associated with malignant-appearing lymphadenopathy in the left-sided cervical lymph node chains. 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 Pathologic confirmation is pending at this time. Plan: 1. CT-guided biopsy of left-sided cervical lymph node mass to confirm our suspicion of an underlying malignancy. 2. Once diagnosis is established we will need to plan treatment and staging. 3. I will order CT scan of the chest to rule out pulmonary metastases and to rule out mediastinal lymphadenopathy. 4. His dentition will require a dentists attention prior to being initiated on radiation. I will discuss the case with our radiation oncologists as perhaps the mandible will not receive a high dose of radiation due to the location of the tumor i.e. at the level of the larynx as a post in the oropharynx. 5. I did talk to the patient about possibly undergoing one cycle of neoadjuvant systemic therapy to help control his disease while we await dental clearance and while he undergoes planning for radiation to start. The oncology service of follow along with you. Thank you for involving me in the care of this very pleasant gentleman. Discussed Condition With The patient. Lul Drake MD Nov 17, 2016 09:16
--- NOTE | 2016-11-17 10:01 | HHI.PR ---
Subjective Remarks Seen by Oncology. Neck biopsy scheduled for tomorrow. Objective Vital Signs Date Time Temp Pulse Resp B/P Pulse Ox O2 Delivery O2 Flow Rate FiO2 11/17/16 04:00 97.1 73 16 158/94 98 11/17/16 00:00 97.3 77 16 155/94 98 11/16/16 20:18 92 11/16/16 20:00 98.2 81 17 162/88 97 11/16/16 16:00 98.1 66 18 168/89 98 11/16/16 12:00 97.3 72 16 136/86 97 I/O 11/16/16 11/16/16 11/16/16 11/17/16 11/17/16 11/17/16 07:00 15:00 23:00 07:00 15:00 23:00 Intake Total 480 ml 800 ml 240 ml 240 ml Output Total 650 ml 600 ml Balance 480 ml 800 ml -410 ml -360 ml Intake Oral 480 ml 800 ml 240 ml 240 ml Output Urine Total 650 ml 600 ml # Voids 2 4 # Bowel Movements 0 Result Diagram: 11/17/16 0607 11/17/16 0607 Assessment and Plan Assessment and Plan 51 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 If this is non-diagnostic may need to consider OR biopsy of larynx under general. If carcinoma is confirmed, follow with oncology. Not a surgical candidate for tumor resection Sundar Perez MD Nov 17, 2016 10:01
[2016-11-17] MEDS ORDERED: IOHEXOL 350 MG/ML 10 ML VIAL (for RAD DIAG) IV ONE (10:09)
--- NOTE | 2016-11-17 10:22 | RADRPT ---
EXAM DATE/TIME: 11/17/2016 09:59 [facility] COMPARISON: CHEST PA & LAT, March 09, 2013, 14:45. CHEST PA & LAT, February 09, 2015, 23:54. INDICATIONS : Shortness of breath. IV CONTRAST: 100 cc Omnipaque 350 (iohexol) IV RADIATION DOSE: 5.12 CTDIvol (mGy) MEDICAL HISTORY : Cardiovascular disease. Neck mass. SURGICAL HISTORY : None. ENCOUNTER: Initial ACUITY: 1 day PAIN SCALE: 0/10 LOCATION: Bilateral chest TECHNIQUE: Volumetric scanning of the chest was performed. Using automated exposure control and adjustment of t he mA and/or kV according to patient size, radiation dose was kept as low as reasonably achievable to obtain optimal diagnostic quality images. FINDINGS: LUNGS: There is no consolidation or pneumothorax. No concerning pulmonary nodule is visualized. PLEURA: There is pleural thickening and calcification at the posterior left upper chest. MEDIASTINUM: The heart and great vessels demonstrate no acute abnormality. There is no mediastinal or hilar lymph adenopathy. The left vertebral artery arises directly from the aortic arch between the left common ca rotid artery and the left subclavian artery. The seen normal variant. Clips are seen around the desce nding thoracic aorta. AXILLAE: Within normal limits. No lymphadenopathy. SKELETAL: Within normal limits for patient age. MISCELLANEOUS: The visualized upper abdominal organs demonstrate no acute abnormality. CONCLUSION: No acute abnormality seen. Braulio Pang MD on November 17, 2016 at 10:16 Board Certified Radiologist. This report was verified electronically.
--- NOTE | 2016-11-17 12:30 | HHI.PR ---
Subjective Remarks Patient seen and examined this am. Per nurse patient was caught smoking cigarettes in his room this am. Tolerating his diet this morning as long as he chews small bites. Asking for dilaudid at night to help him sleep. Breathing comfortably at rest. Denies CP, N, or V. Objective Vital Signs Date Time Temp Pulse Resp B/P Pulse Ox O2 Delivery O2 Flow Rate FiO2 11/17/16 07:50 97.8 61 20 148/82 98 11/17/16 04:00 97.1 73 16 158/94 98 11/17/16 00:00 97.3 77 16 155/94 98 11/16/16 20:18 92 11/16/16 20:00 98.2 81 17 162/88 97 11/16/16 16:00 98.1 66 18 168/89 98 I/O 11/16/16 11/16/16 11/16/16 11/17/16 11/17/16 11/17/16 07:00 15:00 23:00 07:00 15:00 23:00 Intake Total 480 ml 800 ml 240 ml 240 ml Output Total 650 ml 600 ml Balance 480 ml 800 ml -410 ml -360 ml Intake Oral 480 ml 800 ml 240 ml 240 ml Output Urine Total 650 ml 600 ml # Voids 2 4 # Bowel Movements 0 Result Diagram: 11/17/16 0607 11/17/16 0607 Imaging Last Impressions Chest CT 11/17/16 0000 Signed Impressions: Service Date/Time: Thursday, November 17, 2016 09:59 - CONCLUSION: No acute abnormality seen. Braulio Pang MD Neck CT 11/15/16 0000 Signed Impressions: Service Date/Time: Tuesday, November 15, 2016 17:13 - CONCLUSION: 1. There is mass in the piriform sinus on the left suspicious for neoplastic process with malignant appearing metastatic adenopathy on the left side of the neck. 2. Not mentioned above significant atherosclerotic plaquing of the left internal carotid artery with almost 50%% stenosis. Fernando Sparrow MD Other Results GENERAL: This is thin, disheveled, and sitting up in bed. In NAD. SKIN: No rashes. Cool and dry. Multiple small bruises noted on bilateral forearms. NECK: Left occipital region with what appears to be a lipoma. Left neck with ~ 3 cm, firm mass palpable, tender to touch. CARDIOVASCULAR: Regular rate and rhythm without murmurs, gallops, or rubs. RESPIRATORY: Diminished air exchange bilaterally at bases. Otherwise clear to auscultation without adventitious sounds. GASTROINTESTINAL: Abdomen soft, non-tender, nondistended. No guarding. MUSCULOSKELETAL: Extremities without clubbing, cyanosis, or edema. No calf tenderness. Right ankle with small brace in place. NEUROLOGICAL: Awake and alert. Motor and sensory grossly within normal limits. Normal speech. A/P Problem List: (1) Neck mass ICD Code: R22.1 (2) Adenopathy ICD Code: R59.1 (3) Left carotid artery stenosis ICD Code: I65.22 (4) Tobacco abuse ICD Code: Z72.0 (5) Alcohol abuse ICD Code: F10.10 Assessment and Plan 51 year old female here with 1. 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 Perez - [facility]-onc consult was placed: Dr Hazel biopsy will confirm suspicion of an underlying malignancy. Once diagnosis is established we will need to plan treatment and staging. CT scan of the chest to rule out pulmonary metastases and to rule out mediastinal lymphadenopathy. His dentition will require a dentists attention prior to being initiated on radiation. Further recommendations to follow. -dilaudid 0.5 mg IV push every 4 hours as needed for pain level 6 through 10 and Percocet 5/325 every 6 hours as needed for pain level I through 5 2. Left carotid artery stenosis - will need outpatient follow up upon discharge 3. Tobacco abuse -suspect patient has COPD. Will place order for PRN Duoneb. Steroids, as above. -cessation strongly advised - nicotine patch ordered 4. Alcohol abuse - Risk for alcohol withdrawal - [facility] protocol ordered to prevent alcohol withdrawal - Thiamine, multivitamin, folic acid acid supplementation - Seizure precautions - Accu-Cheks before meals and at bedtime - Monitor vital signs every 4 hours - Case management consultation 5. DVT prophylaxis - SCDs case discussed with patient, nurse, and charge nurse Discharge Planning D/C pending further work up. Damaris Talamantes MD R3 Nov 17, 2016 12:30
[2016-11-17] MEDS ORDERED: ZOLPIDEM TARTRATE 10 MG TAB PO PRN (13:45)
[2016-11-17] MEDS: REMOVE OLD PATCH T-DERMAL SCH (23:04)
[2016-11-18] VITALS (12 sets, daily range): BP systolic 130–166; BP diastolic 70–95; PULSE 50–69; RESP 14–18; TEMP 97.1–98.9; O2SAT 95–99
[2016-11-18] MEDS: HYDROmorphone HCL PF 1 MG/ML VIAL IV PUSH PRN ×5 (04:01→21:24)
[2016-11-18] MEDS: SODIUM CHLORIDE 0.9% FLUSH 10 ML FLUSH IV FLUSH SCH ×2 (08:36→21:23)
[2016-11-18] MEDS ORDERED: REMOVE OLD PATCH T-DERMAL SCH (09:00)
--- NOTE | 2016-11-18 10:10 | HHI.PR ---
Subjective Remarks Follow up neck mass. Patient states he is doing ok, just nervous about the procedure today. Patient is scheduled for a CT guided biopsy today. He states he does have a hard time swallowing tough foods like [employer] meat, but is able to tolerate soft foods like eggs. Complains of pain with palpation of left neck. Denies any other complaints. Objective Vitals Vital Signs Date Time Temp Pulse Resp B/P Pulse Ox O2 Delivery O2 Flow Rate FiO2 11/18/16 05:50 50 156/82 11/18/16 04:00 97.7 61 16 166/92 98 11/18/16 00:00 98.1 69 16 160/90 98 11/17/16 20:07 58 11/17/16 20:00 98.3 66 17 160/80 97 11/17/16 15:50 98.4 67 20 158/85 98 11/17/16 11:50 98.2 72 20 162/97 97 I/O 11/17/16 11/17/16 11/17/16 11/18/16 11/18/16 11/18/16 07:00 15:00 23:00 07:00 15:00 23:00 Intake Total 240 ml 461 ml 480 ml 620 ml Output Total 600 ml 250 ml 450 ml Balance -360 ml 211 ml 480 ml 170 ml Intake Oral 240 ml 461 ml 480 ml IV Total 620 ml Output Urine Total 600 ml 250 ml 450 ml # Voids 1 5 # Bowel Movements 0 1 Result Diagram: 11/17/16 0607 11/17/16 0607 Imaging Last Impressions Chest CT 11/17/16 0000 Signed Impressions: Service Date/Time: Thursday, November 17, 2016 09:59 - CONCLUSION: No acute abnormality seen. Braulio Pang MD Neck CT 11/15/16 0000 Signed Impressions: Service Date/Time: Tuesday, November 15, 2016 17:13 - CONCLUSION: 1. There is mass in the piriform sinus on the left suspicious for neoplastic process with malignant appearing metastatic adenopathy on the left side of the neck. 2. Not mentioned above significant atherosclerotic plaquing of the left internal carotid artery with almost 50%% stenosis. Fernando Sparrow MD Objective Remarks GENERAL: This is thin, disheveled, and sitting up in bed. In NAD. SKIN: No rashes. Cool and dry. Multiple small bruises noted on bilateral forearms. NECK: Left neck with firm mass palpable, tender to touch. CARDIOVASCULAR: Regular rate and rhythm without murmurs, gallops, or rubs. RESPIRATORY: Diminished air exchange bilaterally at bases. Otherwise clear to auscultation without adventitious sounds. GASTROINTESTINAL: Abdomen soft, non-tender, nondistended. No guarding. MUSCULOSKELETAL: Extremities without clubbing, cyanosis, or edema. No calf tenderness. Right ankle with small brace in place. NEUROLOGICAL: Awake and alert. Motor and sensory grossly within normal limits. Normal speech. Medications and IVs Current Medications Medications (Trade) Dose Ordered Sig/Lisseth Route Start Time Stop Time Status Last Admin (NS Flush) 2 ml UNSCH PRN IV FLUSH 11/15/16 18:30 (NS Flush) 2 ml BID IV FLUSH 11/15/16 21:00 11/18/16 08:36 (Tylenol) 650 mg Q4H PRN PO 11/15/16 18:30 (Zofran Inj) 4 mg Q6H PRN IVP 11/15/16 18:30 (Milk Of Magnesia Liq) 30 ml Q12H PRN PO 11/15/16 18:30 (Narcan Inj) 0.4 mg UNSCH PRN IV 11/15/16 18:30 (Percocet 5-325 Mg) 1 tab Q6H PRN PO 11/15/16 18:30 11/16/16 00:52 Hydromorphone HCl 0.5 mg 0.5 mg Q4H PRN IV PUSH 11/15/16 18:30 11/18/16 08:34 Multivitamins 10 ml/Folic Acid 1 mg/Sodium Chloride 510.2 ml @ 125 mls/hr Q24H IV 11/16/16 00:15 11/21/16 00:14 11/17/16 23:50 (Thiamine Inj/NS Inj) 101 ml @ 100 mls/hr Q24H IV 11/16/16 00:15 11/19/16 00:14 11/17/16 23:50 (Vitamin B1) 100 mg DAILY PO 11/19/16 09:00 (Romazicon Inj) 0.2 mg Q1M PRN IV PUSH 11/16/16 00:15 (Ativan) 1 mg Q4H PRN PO 11/16/16 00:15 (Ativan Inj) 1 mg Q4H PRN IV PUSH 11/16/16 00:15 (Ativan) 2 mg Q2H PRN PO 11/16/16 00:15 (Ativan Inj) 2 mg Q2H PRN IV PUSH 11/16/16 00:15 11/16/16 00:51 (Ativan Inj) 2 mg Q1H PRN IV PUSH 11/16/16 00:15 (Ativan Inj) 2 mg Q15M PRN IV PUSH 11/16/16 00:15 (Haldol Inj) 2 mg Q15M PRN IM 11/16/16 00:15 (Decadron) 4 mg DAILY PO 11/17/16 09:00 11/17/16 09:10 (Catapres) 0.1 mg Q6H PRN PO 11/16/16 14:00 (Habitrol 14 Mg Patch.24 Hr) 1 patch DAILY T-DERMAL 11/18/16 09:00 Miscellaneous Information 1 HS T-DERMAL 11/17/16 21:00 (Ambien) 10 mg HS PRN PO 11/17/16 13:45 Urinary Catheter: No Vascular Central Line Catheter: No A/P Problem List: (1) Pyriform sinus mass ICD Code: R22.0 Status: Acute (2) Adenopathy ICD Code: R59.1 Status: Acute (3) Left carotid artery stenosis ICD Code: I65.22 Status: Acute (4) Tobacco abuse ICD Code: Z72.0 Status: Acute (5) Alcohol abuse ICD Code: F10.10 Status: Acute Assessment and Plan Left pyriform sinus mass suspicious for neoplastic process with malignant appearing adenopathy on left side of neck - consult ENT: ENT recommended CT guided bx of left neck mass and cervical node biopsy for diagnosis on 11/18 - Dr. Perez - heme-onc consult was placed: Dr Hazel biopsy will confirm suspicion of an underlying malignancy. Once diagnosis is established we will need to plan treatment and staging. CT scan of the chest to rule out pulmonary metastases and to rule out mediastinal lymphadenopathy. His dentition will require a dentists attention prior to being initiated on radiation. Further recommendations to follow. -Cont dilaudid 0.5 mg IV push every 4 hours as needed for pain level 6 through 10 and Percocet 5/325 every 6 hours as needed for pain level I through 5 -Soft diet Left carotid artery stenosis: 50% stenosis - will need outpatient follow up upon discharge Tobacco abuse -suspect patient has COPD. -Cont PRN Duoneb. Steroids -cessation strongly advised -Cont nicotine patch Alcohol abuse - Risk for alcohol withdrawal - Cont CIWA protocol to prevent alcohol withdrawal - Thiamine, multivitamin, folic acid acid supplementation - Seizure precautions - Accu-Cheks before meals and at bedtime - Monitor vital signs every 4 hours - Case management consultation DVT prophylaxis - SCDs Written by ABIGAIL Jones acting as scribe for [Anisa] on 11/18/16 at 09 :10. This note was transcribed by scribe [ABIGAIL Jones]. I, Dr. Toro Lange personally performed the history, physical exam, and medical decision making; and confirmed the accuracy of the information in the transcribed note. Authenticated by Dr. Toro Lange on 11/18/16 at 10:16. Discharge Planning Awaiting CT guided bx Franci Wellington Nov 18, 2016 10:10 Toro Lange MD Nov 18, 2016 10:16
--- NOTE | 2016-11-18 15:16 | RADRPT ---
EXAM DATE/TIME: 11/18/2016 13:19 [facility] COMPARISON: No previous studies available for comparison. INDICATIONS : Enlarged lymph node. MEDICAL HISTORY : Hoarseness. Fatigue. Cough. Joint pain. Anxiety. SURGICAL HISTORY : Eye surgery. Aortic valve surgery. Right hernia repair. ENCOUNTER: Initial ACUITY: 1 day PAIN SCORE: 9/10 LOCATION: Left neck ORGAN: Left lymph node neck. SPECIMENS: Two core specimen(s) submitted for pathologic evaluation. DEVICE: 18 gauge Temno needle Post procedure scanning reveals no hematoma or other complication. The possibility does exist that the tissue obtained will be non-diagnostic. If the sample is non-kylie gnostic a repeat biopsy or surgical biopsy may need to be performed. TECHNIQUE: 1. Ultrasound guidance for needle biopsy. 2. Needle biopsy. The risks, benefits, and alternatives to ultrasound guided needle biopsy were explained to the patien t in detail including the risk of bleeding and infection. Written and verbal informed consent was ob tained. With the patient on the ultrasound table, images were obtained. Overlying skin was prepped and drape d in the usual sterile fashion and Lidocaine was utilized as a local anesthetic. A needle was advanced into the identified target and the number of specimens as above obtained and acosta bmitted for pathologic evaluation. The patient tolerated the procedure well and left the ultrasound suite in stable condition. CONCLUSION: Uncomplicated ultrasound guided needle biopsy of left neck mass. Nigel Gallegos MD on November 18, 2016 at 15:14 Board Certified Radiologist. This report was verified electronically.
[2016-11-18] MEDS: NICOTINE 14 MG/24 HR PATCH T-DERMAL SCH (15:53)
[2016-11-18] MEDS: DEXAMETHASONE 4 MG TAB PO SCH (15:53)
[2016-11-18] MEDS: REMOVE OLD PATCH T-DERMAL SCH (21:00)
[2016-11-19] VITALS (8 sets, daily range): BP systolic 133–177; BP diastolic 82–94; PULSE 52–76; RESP 18; TEMP 97.1–98.9; O2SAT 98–100
[2016-11-19] MEDS: MULTIVITAMIN INJ 10 ML, FOLIC ACID INJ 1 MG in SODIUM CHLORID 0.9% 500 ML INJ 500 ML IV SCH ×2 (01:07→23:30)
[2016-11-19] MEDS: HYDROmorphone HCL PF 1 MG/ML VIAL IV PUSH PRN ×6 (01:30→23:30)
[2016-11-19 07:25] LABS: HEMATOCRIT 39.7 % (39.0-51.0); MEAN CELL VOLUME 103.5 FL (80.0-100.0); MEAN CORPUSCULAR HEMOGLOBIN 35.9 PG (27.0-34.0); MEAN CORPUSCULAR HGB CONC 34.7 % (32.0-36.0); PLATELET COUNT 210 TH/MM3 (150-450); RED BLOOD COUNT 3.84 MIL/MM3 (4.50-5.90); RED CELL DISTRIBUTION WIDTH 14.4 % (11.6-17.2); REVIEW FLAG FINAL
--- NOTE | 2016-11-19 07:26 | PD.ONC.PN ---
Subjective Subjective Remarks Patient reports pain in the left side of his neck at the site of the biopsy which was done yesterday. Wants know when he can go home. That he does not think he is withdrawing from alcohol he tells me feels anxious and jittery. He is on a delirium tremens management protocol. Objective Data Date Time Temp Pulse Resp B/P Pulse Ox O2 Delivery O2 Flow Rate FiO2 11/19/16 06:00 97.1 60 18 176/86 98 11/19/16 00:40 97.7 56 18 155/87 99 11/18/16 21:00 98.0 62 18 156/72 99 11/18/16 20:00 60 11/18/16 16:00 97.1 63 16 160/95 99 11/18/16 14:53 98.0 57 14 140/83 98 11/18/16 14:52 98.0 58 14 130/70 96 11/18/16 13:32 98.9 52 18 149/80 96 11/18/16 12:00 98.2 63 16 158/77 95 11/18/16 08:27 52 11/18/16 08:00 98.5 65 16 165/85 99 Result Diagram: 11/17/16 0607 11/17/16 0607 Administered Medications Medications (Trade) Dose Ordered Sig/Lisseth Route PRN Reason Start Time Stop Time Status Last Admin Dose Admin Sodium Chloride (NS Flush) 2 ml BID IV FLUSH 11/15/16 21:00 11/18/16 21:23 Oxycodone/ Acetaminophen (Percocet 5-325 Mg) 1 tab Q6H PRN PO PAIN SCALE 1-5 11/15/16 18:30 11/16/16 00:52 Hydromorphone HCl 0.5 mg 0.5 mg Q4H PRN IV PUSH PAIN 6-10 11/15/16 18:30 11/19/16 05:35 Multivitamins/ Folic Acid/Sodium Chloride (Mvi-12 Inj/ Folvite Inj/NS 500 ml Inj) 510.2 ml @ 125 mls/hr Q24H IV 11/16/16 00:15 11/21/16 00:14 11/19/16 01:07 Lorazepam (Ativan Inj) 2 mg Q2H PRN IV PUSH CIWA 11-14 11/16/16 00:15 11/16/16 00:51 Dexamethasone (Decadron) 4 mg DAILY PO 11/17/16 09:00 11/18/16 15:53 Nicotine (Habitrol 14 Mg Patch.24 Hr) 1 patch DAILY T-DERMAL 11/18/16 09:00 11/18/16 15:53 Miscellaneous Information 1 HS T-DERMAL 11/17/16 21:00 11/18/16 21:00 Objective Remarks Gen: Middle-aged male, sitting up in bed, in no acute distress, has a pleasant disposition. He is thin built but not cachectic, he is not obviously distressed from a respiratory standpoint and speaks in full sentences. SKIN: No rashes, ecchymoses or lesions. Cool and dry. Chronic sun in smoking- related changes. HEAD: Atraumatic. Normocephalic. No temporal or scalp tenderness. EYES: Pupils equal round and reactive. Extraocular motions intact. No scleral icterus. No injection or drainage. ENT: Nose without bleeding, purulent drainage or septal hematoma. Throat without erythema, tonsillar hypertrophy or exudate. Uvula midline. Airway patent. NECK: Trachea midline. No JVD . Pathologically enlarged left level II cervical lymphadenopathy, measuring at least 3 cm. Posteriorly he has what appears to be sebaceous cysts measuring 2 cm along the posterior aspect of his neck. CARDIOVASCULAR: Regular rate and rhythm without murmurs, gallops, or rubs. RESPIRATORY: Clear to auscultation. Breath sounds equal bilaterally. No wheezes , rales, or rhonchi. GASTROINTESTINAL: Abdomen soft, non-tender, nondistended. No hepato-splenomegaly , or palpable masses. No guarding. MUSCULOSKELETAL: Extremities without clubbing, cyanosis, or edema. No joint tenderness, effusion, or edema noted. No calf tenderness. Negative Homans sign bilaterally. NEUROLOGICAL: Awake and alert. Cranial nerves II through XII intact. Motor and sensory grossly within normal limits. Five out of 5 muscle strength in all muscle groups. Normal speech. Assessment/Plan Assessment 51-year-old male with a history of daily alcohol consumption and a [id number] history of smoking who presents the hospital with a three-month history of an enlarging left-sided neck mass, he later developed difficulty swallowing. He was evaluated at the [facility] emergency department where CT imaging of the neck indicated a mass involving the left piriform sinus associated with malignant-appearing lymphadenopathy in the left-sided cervical lymph node chains. 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 Pathologic confirmation is pending at this time. Plan 1. CT-guided biopsy of left-sided cervical lymph node mass to confirm our suspicion of an underlying malignancy. This was done on 11/18/2016, results are pending. 2. CT scan of the thorax revealed no evidence of metastatic disease to the mediastinum or lung parenchyma, visualized bony structures were without evidence of metastases. 3. Once his diagnosis is established (I anticipate preliminary pathology results within the next 24 hours) I would prefer to give him 1 dose of neoadjuvant chemotherapy with carboplatin/Taxol as an inpatient. The purpose of this would be to expedite initiation of therapy so as to slow down the progression of disease and to protect his airway and upper digestive tract from obstruction due to the mass. Additionally I anticipate there'll be a significant delay in initiating him on definitive radiation due to dental clearance. Chemotherapy does not require dental clearance therefore some form of treatment sooner rather than later is preferable. 4. Alcohol abuse and possible early delirium tremens: He will certainly need to be monitored closely and I would like to make sure that this man will not be actively which warrant from alcohol while on chemotherapy. Therefore, I will discuss the case with the medicine team before initiating chemotherapy. Lul Drake MD Nov 19, 2016 07:26
[2016-11-19 07:52] LABS: BICARBONATE 28.3 MEQ/L (21.0-32.0); POTASSIUM 4.1 MEQ/L (3.5-5.1)
[2016-11-19] MEDS ORDERED: LIDOCAINE HCL 1% PF 30 ML VIAL ONE (08:42)
[2016-11-19] MEDS ORDERED: SODIUM BICARBONATE 8.4% INJ 50 ML ONE (08:42)
[2016-11-19] MEDS: SODIUM CHLORIDE 0.9% FLUSH 10 ML FLUSH IV FLUSH SCH ×2 (09:39→20:10)
[2016-11-19] MEDS: THIAMINE HCL 100 MG TAB PO SCH (09:39)
[2016-11-19] MEDS: DEXAMETHASONE 4 MG TAB PO SCH (09:39)
[2016-11-19] MEDS: NICOTINE 14 MG/24 HR PATCH T-DERMAL SCH (09:40)
[2016-11-19] MEDS: cloNIDine HCL 0.1 MG TAB PO PRN ×2 (09:58→23:32)
--- NOTE | 2016-11-19 12:36 | HHI.PR ---
Subjective Remarks Patient reports that he is feeling ok. Still have some discomfort on the left side of the neck. No shortness of breath. tolerating his diet. Objective Vitals Vital Signs Date Time Temp Pulse Resp B/P Pulse Ox O2 Delivery O2 Flow Rate FiO2 11/19/16 11:25 98.2 60 18 133/82 100 11/19/16 08:00 97.7 55 18 166/85 98 11/19/16 06:00 97.1 60 18 176/86 98 11/19/16 00:40 97.7 56 18 155/87 99 11/18/16 21:00 98.0 62 18 156/72 99 11/18/16 20:00 60 11/18/16 16:00 97.1 63 16 160/95 99 11/18/16 14:53 98.0 57 14 140/83 98 11/18/16 14:52 98.0 58 14 130/70 96 11/18/16 13:32 98.9 52 18 149/80 96 I/O 11/18/16 11/18/16 11/18/16 11/19/16 11/19/16 11/19/16 07:00 15:00 23:00 07:00 15:00 23:00 Intake Total 620 ml 480 ml 480 ml Output Total 450 ml Balance 170 ml 480 ml 480 ml Intake Oral 480 ml 480 ml IV Total 620 ml Output Urine Total 450 ml # Voids 4 3 # Bowel Movements 1 Result Diagram: 11/19/16 0531 11/19/16 0531 Imaging Last Impressions Soft Tissue Biopsy 11/18/16 0000 Signed Impressions: Service Date/Time: Friday, November 18, 2016 13:19 - CONCLUSION: Uncomplicated ultrasound guided needle biopsy of left neck mass. Nigel Gallegos MD Chest CT 11/17/16 0000 Signed Impressions: Service Date/Time: Thursday, November 17, 2016 09:59 - CONCLUSION: No acute abnormality seen. Braulio Pang MD Neck CT 11/15/16 0000 Signed Impressions: Service Date/Time: Tuesday, November 15, 2016 17:13 - CONCLUSION: 1. There is mass in the piriform sinus on the left suspicious for neoplastic process with malignant appearing metastatic adenopathy on the left side of the neck. 2. Not mentioned above significant atherosclerotic plaquing of the left internal carotid artery with almost 50%% stenosis. K. Timi Shamlou, MD Objective Remarks GENERAL: This is a well-nourished, well-developed patient, in no apparent distress. NECK: Left-sided neck mass tender to palpation. CARDIOVASCULAR: Normal rate and regular rhythm without murmurs, gallops, or rubs. RESPIRATORY: Good respiratory efforts. Breath sounds equal and clear to auscultation bilaterally. GASTROINTESTINAL: Abdomen soft, non-tender, non-distended. Normal active bowel sounds MUSCULOSKELETAL: Extremities without cyanosis, or edema. NEURO: Alert & Oriented x4 to person, place, time, situation. Moves all ext x4 PSYCH: Appropriate mood and affect. 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 Pathologic confirmation is pending at this time. Left pyriform sinus mass suspicious for neoplastic process with malignant appearing adenopathy on left side of neck - Oncology, Dr Drake following. Plan to start chemotherapy inpatient once diagnosis is confirmed. Further recommendations to follow. -Cont dilaudid 0.5 mg IV push every 4 hours as needed for pain level 6 through 10 and Percocet 5/325 every 6 hours as needed for pain level I through 5 -Soft diet Left carotid artery stenosis: 50% stenosis - will need outpatient follow up upon discharge Tobacco abuse -suspect patient has COPD. -Cont PRN Duoneb. Steroids -cessation strongly advised -Cont nicotine patch Alcohol abuse - Risk for alcohol withdrawal - Cont CIWA protocol to prevent alcohol withdrawal - Thiamine, multivitamin, folic acid acid supplementation - Seizure precautions DVT prophylaxis - SCDs, Patient is ambulatory. Encourage ambulation. Discharge Planning Awaiting pathology with plans to start chemotherapy inpatient Toro Lange MD Nov 19, 2016 12:36
[2016-11-19] MEDS: REMOVE OLD PATCH T-DERMAL SCH (20:10)
[2016-11-20] VITALS (12 sets, daily range): BP systolic 130–191; BP diastolic 65–102; PULSE 49–63; RESP 18–20; TEMP 96.9–99.1; O2SAT 96–100
[2016-11-20] MEDS: HYDROmorphone HCL PF 1 MG/ML VIAL IV PUSH PRN ×2 (04:06→08:46)
[2016-11-20] MEDS: cloNIDine HCL 0.1 MG TAB PO PRN ×2 (05:11→18:30)
--- NOTE | 2016-11-20 07:18 | HHI.PR ---
Subjective Remarks Biopsy confirms squamous cell carcinoma. Objective Vital Signs Date Time Temp Pulse Resp B/P Pulse Ox O2 Delivery O2 Flow Rate FiO2 11/20/16 06:10 49 163/84 11/20/16 04:00 98.2 51 18 184/93 99 11/20/16 00:46 158/90 11/20/16 00:00 97.8 57 20 191/99 98 11/19/16 21:20 98.9 58 18 177/94 98 11/19/16 21:05 69 11/19/16 16:00 98.1 76 18 150/87 100 11/19/16 12:34 52 11/19/16 11:25 98.2 60 18 133/82 100 11/19/16 08:00 97.7 55 18 166/85 98 I/O 11/19/16 11/19/16 11/19/16 11/20/16 11/20/16 11/20/16 07:00 15:00 23:00 07:00 15:00 23:00 Intake Total 1200 ml Balance 1200 ml Intake Oral 1200 ml # Voids 4 # Bowel Movements 1 Result Diagram: 11/19/16 0531 11/19/16 0531 Assessment and Plan Assessment and Plan 51 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 He is not a surgical candidate. Defer to Medical and Radiation Oncology. ENT prn. Sundar Perez MD Nov 20, 2016 07:18
--- NOTE | 2016-11-20 07:56 | PD.ONC.PN ---
Subjective Subjective Remarks Patient denies acute complaints today other than pain in the throat and along the left side of his neck. He tells me they both a swallow though he does have pain. He denies stridor or difficulty breathing other than on occasions when he is laying flat. Continues to have a chronic cough. Feels much more calm and less shaky today. Per nursing staff the patient is not requiring dosing of benzodiazepines for delirium tremens prevention. Objective Data Date Time Temp Pulse Resp B/P Pulse Ox O2 Delivery O2 Flow Rate FiO2 11/20/16 06:10 49 163/84 11/20/16 04:00 98.2 51 18 184/93 99 11/20/16 00:46 158/90 11/20/16 00:00 97.8 57 20 191/99 98 11/19/16 21:20 98.9 58 18 177/94 98 11/19/16 21:05 69 11/19/16 16:00 98.1 76 18 150/87 100 11/19/16 12:34 52 11/19/16 11:25 98.2 60 18 133/82 100 11/19/16 08:00 97.7 55 18 166/85 98 11/20/16 11/20/16 11/20/16 07:00 15:00 23:00 Intake Total 480 ml Balance 480 ml Result Diagram: 11/19/16 0531 11/19/16 0531 Administered Medications Medications (Trade) Dose Ordered Sig/Lisseth Route PRN Reason Start Time Stop Time Status Last Admin Dose Admin Sodium Chloride (NS Flush) 2 ml BID IV FLUSH 11/15/16 21:00 11/19/16 20:10 Oxycodone/ Acetaminophen (Percocet 5-325 Mg) 1 tab Q6H PRN PO PAIN SCALE 1-5 11/15/16 18:30 11/16/16 00:52 Hydromorphone HCl 0.5 mg 0.5 mg Q4H PRN IV PUSH PAIN 6-10 11/15/16 18:30 11/20/16 04:06 Multivitamins/ Folic Acid/Sodium Chloride (Mvi-12 Inj/ Folvite Inj/NS 500 ml Inj) 510.2 ml @ 125 mls/hr Q24H IV 11/16/16 00:15 11/21/16 00:14 11/19/16 23:30 Thiamine HCl (Vitamin B1) 100 mg DAILY PO 11/19/16 09:00 11/19/16 09:39 Lorazepam (Ativan Inj) 2 mg Q2H PRN IV PUSH CIWA 11-14 11/16/16 00:15 11/16/16 00:51 Dexamethasone (Decadron) 4 mg DAILY PO 11/17/16 09:00 11/19/16 09:39 Clonidine (Catapres) 0.1 mg Q6H PRN PO SBP>160, DBP>90 11/16/16 14:00 11/20/16 05:11 Nicotine (Habitrol 14 Mg Patch.24 Hr) 1 patch DAILY T-DERMAL 11/18/16 09:00 11/19/16 09:40 Miscellaneous Information 1 HS T-DERMAL 11/17/16 21:00 11/19/16 20:10 Objective Remarks Gen: Middle-aged male, sitting up in bed, in no acute distress, has a pleasant disposition. He is thin built but not cachectic, he is not obviously distressed from a respiratory standpoint and speaks in full sentences. Appears calm and collected today. SKIN: No rashes, ecchymoses or lesions. Cool and dry. Chronic sun in smoking- related changes. HEAD: Atraumatic. Normocephalic. No temporal or scalp tenderness. EYES: Pupils equal round and reactive. Extraocular motions intact. No scleral icterus. No injection or drainage. ENT: Nose without bleeding, purulent drainage or septal hematoma. Throat without erythema, tonsillar hypertrophy or exudate. Uvula midline. Airway patent. NECK: Trachea midline. No JVD . Pathologically enlarged left level II cervical lymphadenopathy, measuring at least 3 cm. Posteriorly he has what appears to be sebaceous cysts measuring 2 cm along the posterior aspect of his neck. CARDIOVASCULAR: Regular rate and rhythm without murmurs, gallops, or rubs. RESPIRATORY: Clear to auscultation. Breath sounds equal bilaterally. No wheezes , rales, or rhonchi. GASTROINTESTINAL: Abdomen soft, non-tender, nondistended. No hepato-splenomegaly , or palpable masses. No guarding. MUSCULOSKELETAL: Extremities without clubbing, cyanosis, or edema. No joint tenderness, effusion, or edema noted. No calf tenderness. Negative Homans sign bilaterally. NEUROLOGICAL: Awake and alert. Cranial nerves II through XII intact. Motor and sensory grossly within normal limits. Five out of 5 muscle strength in all muscle groups. Normal speech. Assessment/Plan Assessment 51-year-old male with a history of daily alcohol consumption and a [id number] history of smoking who presents the hospital with a three-month history of an enlarging left-sided neck mass, he later developed difficulty swallowing. He was evaluated at the [facility] emergency department where CT imaging of the neck indicated a mass involving the left piriform sinus associated with malignant-appearing lymphadenopathy in the left-sided cervical lymph node chains. 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 Pathologic confirmation is pending at this time. Plan 1. CT-guided biopsy of left-sided cervical lymph node mass to confirm our suspicion of an underlying malignancy. 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 2. CT scan of the thorax revealed no evidence of metastatic disease to the mediastinum or lung parenchyma, visualized bony structures were without evidence of metastases. 3. Plan to dose with carboplatin AUC of 5/Taxol 175 mg per metered squared today. Chemotherapy teaching has been ordered. Blood work including renal function were reviewed. I did talk to the patient about the risks and benefits of chemotherapy in this situation as well as some of the adverse effects he can anticipate such as fatigue, weakness, nausea, hair loss. Also risk of depleted blood counts including cytopenias specifically neutropenia, cytopenia and anemia. I've explained to him that the neutropenia in particular we'll put him at high risk for infection. I explained to him that he must abstain from alcohol consumption while on chemotherapy to avoid augmentation of the chemotherapy related myelosuppression. 4. Alcohol abuse and possible early delirium tremens: Today he appears to be doing well clinically, he is showing no evidence of delirium tremens. Disposition: Following delivery of chemotherapy today he may be discharged within the upcoming 24-48 hours should he remain stable. Outpatient follow-up with myself will be arranged in the upcoming one to 2 weeks. He will require referral to a dentist for dental clearance prior to initiating definitive radiation. Lul Drake MD Nov 20, 2016 07:56
[2016-11-20] MEDS: NICOTINE 14 MG/24 HR PATCH T-DERMAL SCH (08:48)
[2016-11-20] MEDS: THIAMINE HCL 100 MG TAB PO SCH (08:48)
[2016-11-20] MEDS: REMOVE OLD PATCH T-DERMAL SCH (08:48)
[2016-11-20] MEDS: DEXAMETHASONE 4 MG TAB PO SCH (08:48)
[2016-11-20] MEDS: SODIUM CHLORIDE 0.9% FLUSH 10 ML FLUSH IV FLUSH SCH (08:49)
[2016-11-20] MEDS ORDERED: OXYC1TAB63 PO (09:29)
[2016-11-20] MEDS ORDERED: LISI-519 PO (09:31)
--- NOTE | 2016-11-20 09:36 | HHI.PR ---
Subjective Remarks Patient will have chemotherapy starting today. He complains of same discomfort over the left side of the neck. Able to swallow and eat without issues. Objective Vitals Vital Signs Date Time Temp Pulse Resp B/P Pulse Ox O2 Delivery O2 Flow Rate FiO2 11/20/16 08:56 52 11/20/16 07:50 96.9 52 20 160/85 100 11/20/16 06:10 49 163/84 11/20/16 04:00 98.2 51 18 184/93 99 11/20/16 00:46 158/90 11/20/16 00:00 97.8 57 20 191/99 98 11/19/16 21:20 98.9 58 18 177/94 98 11/19/16 21:05 69 11/19/16 16:00 98.1 76 18 150/87 100 11/19/16 12:34 52 11/19/16 11:25 98.2 60 18 133/82 100 I/O 11/19/16 11/19/16 11/19/16 11/20/16 11/20/16 11/20/16 07:00 15:00 23:00 07:00 15:00 23:00 Intake Total 1200 ml 480 ml 480 ml Balance 1200 ml 480 ml 480 ml Intake Oral 1200 ml 480 ml 480 ml # Voids 4 2 2 # Bowel Movements 1 Result Diagram: 11/19/1631 11/19/16530 Objective Remarks GENERAL: This is a well-nourished, well-developed patient, in no apparent distress. NECK: Left-sided neck mass tender to palpation. CARDIOVASCULAR: Normal rate and regular rhythm without murmurs, gallops, or rubs. RESPIRATORY: Good respiratory efforts. Breath sounds equal and clear to auscultation bilaterally. GASTROINTESTINAL: Abdomen soft, non-tender, non-distended. Normal active bowel sounds MUSCULOSKELETAL: Extremities without cyanosis, or edema. NEURO: Alert & Oriented x4 to person, place, time, situation. Moves all ext x4 PSYCH: Appropriate mood and affect. 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 Pathologic confirmation is pending at this time. Left pyriform sinus mass suspicious for neoplastic process with malignant appearing adenopathy on left side of neck - Oncology, Dr Drake following. Plan to start chemotherapy inpatient once diagnosis is confirmed. Further recommendations to follow. -Cont dilaudid 0.5 mg IV push every 4 hours as needed for pain level 6 through 10 and Percocet 5/325 every 6 hours as needed for pain level I through 5 -Soft diet Left carotid artery stenosis: 50% stenosis - will need outpatient follow up upon discharge HTN: BP consistently elevated - Start Lisinopril. Clonidine PRN. Monitor Tobacco abuse -suspect patient has COPD. -Cont PRN Duoneb. Steroids -cessation strongly advised -Cont nicotine patch Alcohol abuse: - No longer at risk for withdrawal a this point. - [facility] protocol - Thiamine, multivitamin, folic acid acid supplementation DVT prophylaxis - SCDs, Patient is ambulatory. Encourage ambulation. Discharge Planning Patient to start chemo today. Per Dr. Drake, oncologist, he may be discharged after 24-48 hrs if he remains stable. Toro Lange MD Nov 20, 2016 09:36
[2016-11-20] MEDS: LISINOPRIL 5 MG TAB PO SCH (13:07)
[2016-11-20] MEDS: oxyCODONE/ACETAMINOPHEN 5 MG/325 MG TAB PO PRN ×2 (13:07→19:58)
[2016-11-20] MEDS ORDERED: diphenhydrAMINE HCL 25 MG CAP PO SCH (14:00)
[2016-11-20] MEDS ORDERED: GRANISETRON HCL 1 MG/ML VIAL IV SCH (14:00)
[2016-11-20] MEDS ORDERED: FAMOTIDINE 20 MG TAB PO SCH (14:00)
[2016-11-20] MEDS ORDERED: DEXAMETHASONE INJ 10 MG in SODIUM CHLORIDE 0.9% INJ 50 ML IV SCH (14:00)
[2016-11-20] MEDS ORDERED: SODIUM CHLOR 0.9% 250 ML INJ 250 ML IV ONE (15:00)
[2016-11-20] MEDS ORDERED: PACLITAXEL IV SCH (15:00)
[2016-11-20] MEDS ORDERED: NS IV SCH (15:00)
[2016-11-20] MEDS ORDERED: GRANISETRON HCL 1 MG/ML VIAL IV ONE (16:00)
[2016-11-20] MEDS ORDERED: diphenhydrAMINE HCL 25 MG CAP PO ONE (16:00)
[2016-11-20] MEDS ORDERED: FAMOTIDINE 20 MG TAB PO ONE (16:00)
[2016-11-20] MEDS ORDERED: SODIUM CHLOR 0.9% IV SCH (17:00)
[2016-11-20] MEDS ORDERED: CARBOPLATIN IV SCH (17:00)
[2016-11-20] MEDS: MORPHINE SULFATE 4 MG/ML INJ IV PUSH PRN ×2 (17:20→20:54)
[2016-11-21] VITALS (12 sets, daily range): BP systolic 125–192; BP diastolic 67–94; PULSE 48–68; RESP 16–22; TEMP 96.8–98.9; O2SAT 95–100
[2016-11-21] MEDS: MORPHINE SULFATE 4 MG/ML INJ IV PUSH PRN ×3 (00:01→23:10)
[2016-11-21] MEDS: SODIUM CHLORIDE 0.9% FLUSH 10 ML FLUSH IV FLUSH SCH ×3 (00:01→20:29)
[2016-11-21] MEDS: cloNIDine HCL 0.1 MG TAB PO PRN ×2 (01:24→13:39)
[2016-11-21] MEDS: oxyCODONE/ACETAMINOPHEN 5 MG/325 MG TAB PO PRN ×3 (02:32→18:07)
--- NOTE | 2016-11-21 08:56 | HHI.PR ---
Subjective Remarks Complaints of dysphoria, right arm pain, and fatigue today. No nausea, appetite is present. Objective Vital Signs Date Time Temp Pulse Resp B/P Pulse Ox O2 Delivery O2 Flow Rate FiO2 11/21/16 07:30 97.9 50 22 159/73 95 11/21/16 04:00 97.6 49 16 180/67 96 11/21/16 01:30 192/89 11/21/16 00:00 96.8 48 18 178/83 100 11/20/16 22:15 169/81 11/20/16 20:00 98.5 53 18 189/101 96 11/20/16 18:21 98.6 55 20 190/102 96 11/20/16 18:03 98.7 58 20 153/81 99 11/20/16 15:49 98.7 58 20 145/71 97 11/20/16 12:00 99.1 63 20 130/65 98 11/20/16 08:56 52 I/O 11/20/16 11/20/16 11/20/16 11/21/16 11/21/16 11/21/16 07:00 15:00 23:00 07:00 15:00 23:00 Intake Total 480 ml 922 ml 480 ml 240 ml Balance 480 ml 922 ml 480 ml 240 ml Intake Oral 480 ml 922 ml 480 ml 240 ml # Voids 2 9 1 # Bowel Movements 1 Result Diagram: 11/19/16 0531 11/19/16 0531 Imaging Last Impressions Soft Tissue Biopsy 11/18/16 0000 Signed Impressions: Service Date/Time: Friday, November 18, 2016 13:19 - CONCLUSION: Uncomplicated ultrasound guided needle biopsy of left neck mass. Nigel Gallegos MD Chest CT 11/17/16 0000 Signed Impressions: Service Date/Time: Thursday, November 17, 2016 09:59 - CONCLUSION: No acute abnormality seen. Braulio Pang MD Neck CT 11/15/16 0000 Signed Impressions: Service Date/Time: Tuesday, November 15, 2016 17:13 - CONCLUSION: 1. There is mass in the piriform sinus on the left suspicious for neoplastic process with malignant appearing metastatic adenopathy on the left side of the neck. 2. Not mentioned above significant atherosclerotic plaquing of the left internal carotid artery with almost 50%% stenosis. Fernando Sparrow MD Objective Remarks GENERAL: NAD, A&Ox3 SKIN: Warm and dry. HEAD: Normocephalic. EYES: No scleral icterus. No injection or drainage. NECK: Supple, trachea midline. No JVD or lymphadenopathy. CARDIOVASCULAR: Regular rate and rhythm without murmurs, gallops, or rubs. RESPIRATORY: Breath sounds equal bilaterally. No accessory muscle use. GASTROINTESTINAL: Abdomen soft, non-tender, nondistended. MUSCULOSKELETAL: No cyanosis, or edema. BACK: Nontender without obvious deformity. No CVA tenderness. Medications and IVs Administered Medications Medications (Trade) Dose Ordered Sig/Lisseth Route PRN Reason Start Time Stop Time Status Last Admin Dose Admin Sodium Chloride (NS Flush) 2 ml BID IV FLUSH 11/15/16 21:00 11/21/16 00:01 Acetaminophen (Tylenol) 650 mg Q4H PRN PO Fever, headache 11/15/16 18:30 11/20/16 20:55 Oxycodone/ Acetaminophen (Percocet 5-325 Mg) 1 tab Q6H PRN PO PAIN GREATER THAN 5 11/15/16 18:30 11/21/16 02:32 Dexamethasone (Decadron) 4 mg DAILY PO 11/17/16 09:00 11/20/16 08:48 Clonidine (Catapres) 0.1 mg Q6H PRN PO SBP>160, DBP>90 11/16/16 14:00 11/21/16 01:24 Nicotine (Habitrol 14 Mg Patch.24 Hr) 1 patch DAILY T-DERMAL 11/18/16 09:00 11/20/16 08:48 Miscellaneous Information 1 HS T-DERMAL 11/17/16 21:00 11/20/16 08:48 Lisinopril (Prinivil) 5 mg DAILY PO 11/20/16 09:30 11/20/16 13:07 Morphine Sulfate (Morphine Inj) 2 mg Q3H PRN IV PUSH BREAKTHROUGH PAIN 11/20/16 09:45 11/21/16 03:35 A/P Problem List: (1) Metastatic disease ICD Code: C79.9 (2) Adenopathy ICD Code: R59.1 (3) Left carotid artery stenosis ICD Code: I65.22 (4) Pyriform sinus mass ICD Code: R22.0 (5) Tobacco abuse ICD Code: Z72.0 (6) Neck mass ICD Code: R22.1 (7) Alcohol abuse ICD Code: F10.10 Assessment and Plan Assessment and Plan 51 year old male with left sided neck mass. Concerning for a primary malignancy of the hypopharynx. Chemotherapy started yesterday. Left pyriform sinus mass Oncology Following (Dr. Drake) Chemotherapy provided starting yesterday PRN Dilaudid PRN Percocet Soft Diet Follow CBC, BMP Left carotid artery stenosis 50% stenosis HTN BP consistently elevated Continue Lisinopril. Clonidine PRN. Monitor BP Tobacco abuse Possible COPD Continue steroids Continue duonebs Continue nicotine patch Cessation recommended Alcohol Abuse Hx Thiamine MV Folic Acid Follow clinically for any signs of DT No DTs at this point DVT prophylaxis Patient is ambulatory SCDs Discharge Planning Patient to start chemo yesterday He is not feeling well today, so I will monitor him for 24 hours more at this point Emmanuel Campuzano MD Nov 21, 2016 08:56
[2016-11-21] MEDS: NICOTINE 14 MG/24 HR PATCH T-DERMAL SCH (09:06)
[2016-11-21] MEDS: LISINOPRIL 5 MG TAB PO SCH (09:07)
[2016-11-21] MEDS: DEXAMETHASONE 4 MG TAB PO SCH (09:08)
[2016-11-21] MEDS: NAPROXEN 250 MG TAB PO SCH ×2 (09:22→20:26)
--- NOTE | 2016-11-21 13:15 | PD.ONC.PN ---
Subjective Subjective Remarks Patient denies complaints, tolerating chemotherapy without significant difficulties or adverse effects. He has been having hypertension which has been treated with intravenous as needed doses of Catapres. Objective Data Date Time Temp Pulse Resp B/P Pulse Ox O2 Delivery O2 Flow Rate FiO2 11/21/16 11:59 64 11/21/16 07:30 97.9 50 22 159/73 95 11/21/16 04:00 97.6 49 16 180/67 96 11/21/16 01:30 192/89 11/21/16 00:00 96.8 48 18 178/83 100 11/20/16 22:15 169/81 11/20/16 20:00 98.5 53 18 189/101 96 11/20/16 18:21 98.6 55 20 190/102 96 11/20/16 18:03 98.7 58 20 153/81 99 11/20/16 15:49 98.7 58 20 145/71 97 11/21/16 11/21/16 11/21/16 07:00 15:00 23:00 Intake Total 240 ml 250 ml Balance 240 ml 250 ml Result Diagram: 11/19/16 0531 11/19/16530 Administered Medications Medications (Trade) Dose Ordered Sig/Lisseth Route PRN Reason Start Time Stop Time Status Last Admin Dose Admin Sodium Chloride (NS Flush) 2 ml BID IV FLUSH 11/15/16 21:00 11/21/16 09:22 Acetaminophen (Tylenol) 650 mg Q4H PRN PO Fever, headache 11/15/16 18:30 11/20/16 20:55 Oxycodone/ Acetaminophen (Percocet 5-325 Mg) 1 tab Q6H PRN PO PAIN GREATER THAN 5 11/15/16 18:30 11/21/16 09:08 Dexamethasone (Decadron) 4 mg DAILY PO 11/17/16 09:00 11/21/16 09:08 Clonidine (Catapres) 0.1 mg Q6H PRN PO SBP>160, DBP>90 11/16/16 14:00 11/21/16 01:24 Nicotine (Habitrol 14 Mg Patch.24 Hr) 1 patch DAILY T-DERMAL 11/18/16 09:00 11/21/16 09:06 Miscellaneous Information 1 HS T-DERMAL 11/17/16 21:00 11/20/16 08:48 Lisinopril (Prinivil) 5 mg DAILY PO 11/20/16 09:30 11/21/16 09:07 Morphine Sulfate (Morphine Inj) 2 mg Q3H PRN IV PUSH BREAKTHROUGH PAIN 11/20/16 09:45 11/21/16 03:35 Naproxen (Naprosyn) 250 mg Q12HR PO 11/21/16 10:00 11/21/16 09:22 Objective Remarks Gen: Middle-aged male, sitting up in bed, in no acute distress, has a pleasant disposition. He is thin built but not cachectic, he is not obviously distressed from a respiratory standpoint and speaks in full sentences. Appears calm and collected today. SKIN: No rashes, ecchymoses or lesions. Cool and dry. Chronic sun in smoking- related changes. HEAD: Atraumatic. Normocephalic. No temporal or scalp tenderness. EYES: Pupils equal round and reactive. Extraocular motions intact. No scleral icterus. No injection or drainage. ENT: Nose without bleeding, purulent drainage or septal hematoma. Throat without erythema, tonsillar hypertrophy or exudate. Uvula midline. Airway patent. NECK: Trachea midline. No JVD . Pathologically enlarged left level II cervical lymphadenopathy, measuring at least 3 cm. Posteriorly he has what appears to be sebaceous cysts measuring 2 cm along the posterior aspect of his neck. CARDIOVASCULAR: Regular rate and rhythm without murmurs, gallops, or rubs. RESPIRATORY: Clear to auscultation. Breath sounds equal bilaterally. No wheezes , rales, or rhonchi. GASTROINTESTINAL: Abdomen soft, non-tender, nondistended. No hepato-splenomegaly , or palpable masses. No guarding. MUSCULOSKELETAL: Extremities without clubbing, cyanosis, or edema. No joint tenderness, effusion, or edema noted. No calf tenderness. Negative Homans sign bilaterally. NEUROLOGICAL: Awake and alert. Cranial nerves II through XII intact. Motor and sensory grossly within normal limits. Five out of 5 muscle strength in all muscle groups. Normal speech. Assessment/Plan Assessment 51-year-old male with a history of daily alcohol consumption and a [id number] history of smoking who presents the hospital with a three-month history of an enlarging left-sided neck mass, he later developed difficulty swallowing. He was evaluated at the [facility] emergency department where CT imaging of the neck indicated a mass involving the left piriform sinus associated with malignant-appearing lymphadenopathy in the left-sided cervical lymph node chains. 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 CT scan of the chest without evidence of metastases. Clinical stage: T3 N1 M0: Stage III Plan 1. CT-guided biopsy of left-sided cervical lymph node mass to confirm our suspicion of an underlying malignancy. 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 2. CT scan of the thorax revealed no evidence of metastatic disease to the mediastinum or lung parenchyma, visualized bony structures were without evidence of metastases. 3. Plan to dose with carboplatin AUC of 5/Taxol 175 mg per metered squared cycle and day 1 on 11/20/2016. 4. Alcohol abuse and possible early delirium tremens: Today he appears to be doing well clinically, he is showing no evidence of delirium tremens. Disposition: Cleared for discharge from oncology standpoint with outpatient follow-up with medical oncology and radiation oncology. Please discharged home with antiemetic therapy with Zofran 4 mg by mouth every 6 hours as needed for nausea. Lul Drake MD Nov 21, 2016 13:15
[2016-11-21] MEDS: REMOVE OLD PATCH T-DERMAL SCH (20:30)
[2016-11-22] MEDS: oxyCODONE/ACETAMINOPHEN 5 MG/325 MG TAB PO PRN ×2 (02:29→08:32)
[2016-11-22 04:00] VITALS: BP 156/82; PULSE 59; RESP 17; TEMP 97.6; O2SAT 100
[2016-11-22] MEDS: MORPHINE SULFATE 4 MG/ML INJ IV PUSH PRN (05:32)
[2016-11-22 07:05] VITALS: PULSE 60
[2016-11-22 07:43] LABS: HEMATOCRIT 47.2 % (39.0-51.0); MEAN CELL VOLUME 105.5 FL (80.0-100.0); MEAN CORPUSCULAR HEMOGLOBIN 34.8 PG (27.0-34.0); PLATELET COUNT 247 TH/MM3 (150-450); RED BLOOD COUNT 4.47 MIL/MM3 (4.50-5.90); RED CELL DISTRIBUTION WIDTH 14.4 % (11.6-17.2); REVIEW FLAG FINAL
[2016-11-22 07:49] LABS: BICARBONATE 29.6 MEQ/L (21.0-32.0); POTASSIUM 3.6 MEQ/L (3.5-5.1)
[2016-11-22 08:00] VITALS: BP 137/72; PULSE 60; RESP 18; TEMP 98.7; O2SAT 100
[2016-11-22] MEDS: DEXAMETHASONE 4 MG TAB PO SCH (08:29)
[2016-11-22] MEDS: LISINOPRIL 5 MG TAB PO SCH (08:29)
[2016-11-22] MEDS: NAPROXEN 250 MG TAB PO SCH (08:29)
[2016-11-22] MEDS: NICOTINE 14 MG/24 HR PATCH T-DERMAL SCH (08:30)
[2016-11-22] MEDS: SODIUM CHLORIDE 0.9% FLUSH 10 ML FLUSH IV FLUSH SCH (08:35)
[2016-11-22] MEDS: REMOVE OLD PATCH T-DERMAL SCH (08:36)
[2016-11-22] MEDS ORDERED: COLA100C3 PO (09:52)
[2016-11-22] MEDS ORDERED: PERC5TAB12 PO (09:53)
[2016-11-22] MEDS ORDERED: PRED5TAB PO (09:54)
[2016-11-22] MEDS ORDERED: ZOFR4TAB PO (09:55)
--- NOTE | 2016-11-22 11:00 | HHI.DS ---
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 Tierney is a 51 year-old male with a history of alcohol abuse and tobacco abuse who presented to the emergency room complaining of painful swallowing and left neck swelling on 11/15/[address] in [place] Neck CT was performed and showed mass in the form sinus on the left suspicious for neoplastic process malignant appearing adenopathy. The patient was transferred to [facility] for further evaluation and treatment. The patient is seen in his hospital room. He is very pleasant but somewhat anxious and appears tremulous at the time of my visit. He admits to daily alcohol consumption of at least 2-3 beers a day and states that on the weekend he can drink almost a 12 pack a day. He is requesting something to help him sleep. He denies any history of seizures including seizures related to alcohol withdrawal. In regards to his presenting complaint, the patient states that around mid July 2016, he noticed a small lump on the left side of his neck that was about the size of a marble. He states that it has progressively enlarged and become tender. He came to the emergency room today because while he was eating lunch with his boss, he began to notice extreme pain when taking large bites of a hamburger. He noticed that it wasn't painful when he ate smaller bites. He denies dysphagia and reports only odynophagia. He has left neck pain that is currently rated 7 out of 10 on the pain scale. He states that this morning, when he woke up, he was gasping for air and thought this was related to a panic attack. Symptoms (gasping for air) resolved spontaneously. He reports a > 15 pound weight loss over the last 6 months that was unintentional and states he's been unable to gain weight. He denies any history of diabetes mellitus hypertension, coronary artery disease , atrial fibrillation, respiratory disease such as COPD or emphysema, liver or kidney problems, stomach or intestinal problems, urinary problems, thyroid dysfunction, seizures, or problems with blood clots such as: DVT, PE, or CVA. He denies any recent fever, chills, chest pain, hemoptysis, nausea, vomiting, diarrhea, constipation, black or tarry stools, dysuria, hematuria, dizziness, syncope, or paresthesias. . CBC/BMP: 11/22/16 0556 11/22/16 0556 Significant Findings Laboratory Tests Test 11/22/16 05:56 Red Blood Count 4.47 MIL/MM3 (4.50-5.90) Mean Corpuscular Volume 105.5 FL (80.0-100.0) Mean Corpuscular Hemoglobin 34.8 PG (27.0-34.0) Imaging Last Impressions Soft Tissue Biopsy 11/18/16 0000 Signed Impressions: Service Date/Time: Friday, November 18, 2016 13:19 - CONCLUSION: Uncomplicated ultrasound guided needle biopsy of left neck mass. Nigel Gallegos MD Chest CT 11/17/16 0000 Signed Impressions: Service Date/Time: Thursday, November 17, 2016 09:59 - CONCLUSION: No acute abnormality seen. Braulio Pang MD Neck CT 11/15/16 0000 Signed Impressions: Service Date/Time: Tuesday, November 15, 2016 17:13 - CONCLUSION: 1. There is mass in the piriform sinus on the left suspicious for neoplastic process with malignant appearing metastatic adenopathy on the left side of the neck. 2. Not mentioned above significant atherosclerotic plaquing of the left internal carotid artery with almost 50%% stenosis. Fernando Sparrow MD PE at Discharge GENERAL: This is a well-nourished, well-developed patient, in no apparent distress. NECK: Left-sided neck mass tender to palpation. CARDIOVASCULAR: Normal rate and regular rhythm without murmurs, gallops, or rubs. RESPIRATORY: Good respiratory efforts. Breath sounds equal and clear to auscultation bilaterally. GASTROINTESTINAL: Abdomen soft, non-tender, non-distended. Normal active bowel sounds MUSCULOSKELETAL: Extremities without cyanosis, or edema. NEURO: Alert & Oriented x4 to person, place, time, situation. Moves all ext x4 PSYCH: Appropriate mood and affect. Pt update on day of discharge Feeling better today. Patient desires discharge today. Hospital Course Mr. Tierney is a 51 year old male. He was admitted due to neck pain and dysphagia. A neck mass suspect of neoplastic origin was discovered. He had work up here and is diagnosed with squamous cell carcinoma on biopsy. He has started chemotherapy and will be following with oncology as an outpatient. While here he had alcohol withdraws and was weaned and this is now resolved. No complaints. Yesterday after chemo he was not feeling well, so was kept overnight for monitoring, but he is feeling quite well today and is medically stable for discharge. He is instructed to follow up with oncology as an outpatient to continue treatment. Pt Condition on Discharge: Stable Discharge Disposition: Discharge Home Discharge Time: <= 30 minutes Discharge Instructions DIET: Follow Instructions for: As Tolerated, No Restrictions Activities you can perform: Regular-No Restrictions Follow up Referrals: Oncology - Today with [facility] New Medications: Docusate Sodium (Colace) 100 Mg Cap 100 MG PO BID PRN Constipation #60 Ref 0 CAP Lisinopril (Lisinopril) 5 Mg Tab 5 MG PO DAILY Blood Pressure Management #30 Ref 0 TAB Ondansetron (Zofran) 4 Mg Tab 4 MG PO Q6HR PRN NAUSEA OR VOMITING #30 Ref 0 TAB Oxycodone-Acetaminophen (Percocet) 5-325 mg Tab 1 TAB PO Q6H PRN PAIN #60 Ref 0 TAB Prednisone (Prednisone) 5 Mg Tab 5 MG PO DAILY Inflammation #5 Ref 0 TAB Emmanuel Campuzano MD Nov 22, 2016 11:00
== END 2016-11-22 12:20 | disposition home or self-care (01) | DRG 581 ==
LOC: PHEFT 15:04 → PHEDA 18:38 → HOCA 22:39
PROVIDERS: ADMIT Hospitalist; ATTEND Hospitalist
PROC: 07B23ZX Excision of Left Neck Lymphatic, Percutaneous Approach, Diagnostic (ICD-10-PCS; principal; 2016-11-18)
DX: C44.42 Squamous cell carcinoma of skin of scalp and neck (principal); D70.9 Neutropenia, unspecified; C13.9 Malignant neoplasm of hypopharynx, unspecified; C31.9 Malignant neoplasm of accessory sinus, unspecified; I65.22 Occlusion and stenosis of left carotid artery; R13.10 Dysphagia, unspecified; J44.9 Chronic obstructive pulmonary disease, unspecified; I10 Essential (primary) hypertension; F10.10 Alcohol abuse, uncomplicated; F17.210 Nicotine dependence, cigarettes, uncomplicated
CPT/HCPCS: 70491; 71260; 76942; 80048; 80053; 82948; 85025; 85027; 85610; 85730; 88305; 94150; 96360; 99232; J1100; J1170; J1626; J2060; J2270; J3411; J7030; J7040; J7050; J8540; J9045; J9267; Q9967

== ENCOUNTER 2016-12-25 06:14 | Day surgery (SDC) | payer OTHER ==
[~2016-12-25] VITALS: Ht 165.1 cm; Wt 52.3 kg
[~2016-12-25 06:14] MED LIST changes: +COLA100C3 PO; +LISI-519 PO; +PRED5TAB PO; +ZOFR4TAB PO
[2016-12-25 06:58] VITALS: BP 145/92; PULSE 77; RESP 20; TEMP 98.3; O2SAT 93
[2016-12-25] MEDS ORDERED: POVIDONE IODINE 5% (ANTISEPSIS KIT) 4 APPLICATIONS EACH NARE SCH (07:15)
[2016-12-25] MEDS ORDERED: CHLORHEXIDINE GLUCONATE 2 % 1 PACK (2 CLOTHS) TOPICAL SCH (07:15)
[2016-12-25] MEDS ORDERED: VANCOMYCIN 1000 MG/NS 250 ML - implanted port/tunneled catheter IV SCH ×2 (07:15)
[2016-12-25] MEDS ORDERED: ceFAZolin 2 GM PREMIX 50 ML - implanted port/tunneled catheter insertion IV SCH (07:15)
[2016-12-25] MEDS ORDERED: SODIUM CHLORIDE 0.9% 1000 ML IV SCH (07:15)
[2016-12-25 07:23] LABS: APTT (PATIENT) 36.1 SEC (24.3-30.1); PROTHROMBIN TIME - PATIENT 11.1 SEC (9.8-11.6)
[2016-12-25] MEDS ORDERED: MIDAZOLAM HCL 5 MG/5 ML VIAL ONE (08:01)
[2016-12-25] MEDS ORDERED: fentaNYL CITRATE 250 MCG/5 ML AMP ONE (08:01)
[2016-12-25] MEDS ORDERED: LIDOCAINE 1%/EPINEPHrine 1:100,000 SOLN 20 ML VIAL ONE ×2 (08:09→08:23)
--- NOTE | 2016-12-25 08:37 | PD.RAD ---
Post Procedure Progress Note Pre Procedure Diagnosis: (1) Metastatic disease (2) Neck mass Post Procedure Diagnosis: (1) Neck mass (2) Metastatic disease Procedure Date: December 25, 2016 Supervising Radiologist: Gagan Otto Proceduralist/Assist: Nickolas Reid, RT(R), Merry Alberts RT(R)() Estimated blood loss: <5 ml Anesthesia: Conscious Sedation Plan of Activity Patient to Unit: ROPU Patient Condition: Good Additional Comments: Patent IJ. Ready for use. See PACS Report for procedural detail/treatment Gagan Otto MD December 25, 2016 08:37
[2016-12-25 08:45] VITALS: BP 127/73; PULSE 75; RESP 20; TEMP 97.5; O2SAT 94
[2016-12-25] MEDS ORDERED: SODIUM CHLORIDE 0.9% FLUSH 10 ML FLUSH IVF PRN (08:45)
[2016-12-25 09:11] VITALS: BP 127/73; PULSE 75; RESP 20; O2SAT 94
[2016-12-25 09:30] VITALS: BP 149/76; PULSE 77; RESP 20; O2SAT 96
--- NOTE | 2016-12-25 09:36 | RADRPT ---
EXAM DATE/TIME: 12/25/2016 08:20 [facility] COMPARISON: No previous studies available for comparison. INDICATIONS : Patient presents with head and neck cancer in need of port placement for chemotherapy treatment. MEDICAL HISTORY : Smoking hx ETOH SURGICAL HISTORY : Aortic valve Hernia repair Neck mass biopsy Facila recon ENCOUNTER: Initial ACUITY: 1 month PAIN SCORE: 0/10 LOCATION: N/A FLUORO TIME: 0.2 minutes IMAGE SERIES: 1 SEDATION TIME: 15 ACCESS: Right internal jugular vein SEDATION: 1.) 4 mg midazolam (Versed) IV 2.) 200 mcg fentanyl (Sublimaze) IV 3.) 2g cefazolin (Ancef) IV 4.) 1g Vancomycin IV Prophylactic antibiotics were administered with appropriate pre-procedure timing. Vancomycin within 2 hours of procedure, Ancef (or alternative) within 1 hour of procedure. DEVICE: 1. 8 Jamaican single lumen Bard Power Port PROCEDURE : 1. Continuous pulse oximetry and EKG monitoring. 2. Intravenous conscious sedation. 3. Ultrasound guidance for venous access. 4. Fluoroscopic guided implantable central venous port placement. The patient was placed supine. The neck was prepped in sterile fashion. Full sterile technique was u sed, including cap, mask, sterile gloves and gown, and a large sterile sheet. Hand hygiene and 2% ch lorhexidine Betadine was utilized per protocol for cutaneous antisepsis with appropriate dry time for site. The skin and subcutaneous tissues were infiltrated with local anesthetic solution. Under direct ultrasound guidance, central venous access was accomplished in the targeted vessel. The ultrasound images depicting access guidance were stored and saved to PACS for permanent record. A s ubcutaneous pocket was created using blunt dissection. The port was introduced to the pocket. The c atheter tubing was fed through a subcutaneous tunnel to the venotomy site. The catheter tubing was c ut to a suitable length and then was introduced through a valved Peel-Away sheath and positioned with catheter tubing tip at the cavo-atrial junction level. The pocket incision was closed with subcutic ular Vicryl suture. Steri-Strips were applied. The port was flushed and locked with heparin solutio n per protocol. Sterile dressing was applied to the site. The patient tolerated the procedure well. Conscious sedation was performed with the prescribed dosages and duration as above in the presence of an independent trained radiology nurse to assist in the monitoring of the patient. EKG and oximetry remained stable throughout the procedure. The patient tolerated the procedure well and there were no complications. The patient was sent to post anesthesia recovery in stable condition. CONCLUSION: Uncomplicated ultrasound and fluoroscopic guided implanted central venous port catheter placement as described in detail above. An 8 Jamaican Power port was placed. Gagan Otto MD on December 25, 2016 at 9:34 Board Certified Radiologist. This report was verified electronically.
[2016-12-25 10:00] VITALS: BP 138/88; PULSE 84; RESP 20; O2SAT 95
[2016-12-25 10:30] VITALS: BP 138/88; PULSE 84; RESP 20; O2SAT 95
== END 2016-12-25 11:00 | disposition home or self-care (01) ==
LOC: HROP 06:14 → HRIP 06:19 → HROP 11:00
PROVIDERS: ATTEND Internal Medicine Hematology & Oncology
DX: C76.0 Malignant neoplasm of head, face and neck (principal); Z87.891 Personal history of nicotine dependence
CPT/HCPCS: 36561; 76937; 77001; 85610; 85730; 99152; C1788; J0690; J1642; J2250; J3010; J3370; J7030; J7050

== ENCOUNTER → 2017-01-17 | Day surgery (SDC) | payer OTHER ==
[~2017-01-17] MED LIST changes: -COLA100C3 PO; -PERC5TAB12 PO; -PRED5TAB PO; -ZOFR4TAB PO
--- NOTE | 2017-01-17 11:48 | RADRPT ---
EXAM DATE/TIME: 01/17/2017 10:35 [facility] COMPARISON: No previous studies available for comparison. INDICATIONS : Left neck mass. MEDICAL HISTORY : Hoarseness. Fatigue. Cough. Joint pain. Anxiety. SURGICAL HISTORY : Eye surgery. Aortic valve surgery. Right hernia repair. ENCOUNTER: Subsequent ACUITY: 2 months PAIN SCORE: 0/10 LOCATION: Left neck AREA EVALUATED: Left neck. CONCLUSION: Mass is again noted. This was previously biopsied. Biopsy consistent with squamous cell carcinoma. . This is smaller in size.. Tobi Ybarra MD FACR on January 17, 2017 at 11:43 Board Certified Radiologist. This report was verified electronically.
== END | disposition home or self-care (01) ==
LOC: HROP 10:06
PROVIDERS: ATTEND Radiology Radiation Oncology
DX: C76.0 Malignant neoplasm of head, face and neck (principal)
CPT/HCPCS: 76536

== ENCOUNTER 2017-06-27 14:59 | Emergency (ER) | payer MEDICAID, OTHER ==
[~2017-06-27] VITALS: Ht 167.6 cm; Wt 47.5 kg
[2017-06-27 15:21] VITALS: BP 167/82; PULSE 82; RESP 16; TEMP 98.7; O2SAT 99
[2017-06-27] MEDS ORDERED: BACT800T5 PO (17:24)
--- NOTE | 2017-06-27 17:25 | PD ---
HPI Chief Complaint: Lump, Cyst, Hernia Time Seen by Provider: 16:11 Travel History International Travel<30 days: No Contact w/Intl Traveler<30days: No Traveled to known affect area: No History of Present Illness HPI This is a 51-year-old male who has a painful cyst to the left side of his posterior neck 1 year. Patient reports the area has steadily increased in size over the year. Over the last week areas become red and painful prompting his visit today. He denies fever or chills. He denies difficulty moving the neck or difficulty swallowing. Symptom severity is moderate. No alleviating factors. PFSH Past Medical History Medical History: Denies Significant Hx Arthritis: No Blood Disorders: No Heart Rhythm Problems: No Cancer: No Cardiovascular Problems: No High Cholesterol: No Chest Pain: No Congestive Heart Failure: No Diabetes: No Diminished Hearing: No Endocrine: No Gastrointestinal Disorders: No Genitourinary: No Headaches: Yes Hepatitis: No Hypertension: Yes Immune Disorder: No Implanted Vascular Access Dvce: No Medical other: No Musculoskeletal: Yes (LEFT THUMB DISLOCATE) Neurologic: Yes Psychiatric: No Reproductive: No Respiratory: No Immunizations Current: Yes Myocardial Infarction: No Thyroid Disease: No Past Surgical History Abdominal Surgery: Yes (RIGHT HERNIA REPAIR) AICD: No Cardiac Surgery: Yes (HEART SURGERY AN INFANT ON AORTIC [id number] SURGERY A CHILD ) Ear Surgery: No Endocrine Surgery: No Eye Surgery: Yes (RIGHT RECONSTRUCTION) Genitourinary Surgery: No Gynecologic Surgery: No Joint Replacement: No Neurologic Surgery: No Oral Surgery: No Pacemaker: No Thoracic Surgery: No Other Surgery: Yes (CABG) Social History Alcohol Use: No (Socially) Tobacco Use: Yes (1/2 PPD) Substance Use: No Allergies-Medications (Allergen,Severity, Reaction): Coded Allergies: No Known Allergies (Verified Adverse Reaction, Unknown, 06/27/17) Reported Meds & Prescriptions Reported Meds & Active Scripts Active No Active Prescriptions or Reported Medications Review of Systems Except as stated in HPI: all other systems reviewed are Neg General / Constitutional: No: Fever Physical Exam Narrative GENERAL: Alert well-appearing male no acute distress. SKIN: Warm and dry. HEAD: Normocephalic. EYES: No scleral icterus. No injection or drainage. NECK: 2.5 cm fluctuant mass to the left posterior neck with overlying erythema .Supple, trachea midline. No lymphadenopathy. CARDIOVASCULAR: Regular rate and rhythm without murmurs, gallops, or rubs. RESPIRATORY: Breath sounds equal bilaterally. No accessory muscle use. GASTROINTESTINAL: Abdomen soft, non-tender, nondistended. Data Data Last Documented VS Vital Signs Date Time Temp Pulse Resp B/P (MAP) Pulse Ox O2 Delivery O2 Flow Rate FiO2 06/27/17 15:21 98.7 82 16 167/82 (110) 99 MDM Medical Decision Making Medical Screen Exam Complete: Yes Emergency Medical Condition: Yes Differential Diagnosis Inflamed sebaceous cyst, abscess, cellulitis Narrative Course 51-year-old male here with inflamed sebaceous cyst to his left posterior neck. The area was incised and drained. Patient was put on Bactrim and instructed to follow-up the primary doctor. Patient tolerated procedure well Procedures Procedure Narrative INCISION AND DRAINAGE OF ABSCESS: The area was prepped and was sterilely draped. A subcutaneous wheal of 1% lidocaine [with epi] with a total number [2 ] mL was used to anesthetize the area properly. A number 11 scalpel was used to make a [0.5] -cm incision across the area of the abscess. The abscess was drained, complex loculations were broken down, and irrigated with normal saline. Sterile dressing applied. Patient advised to have packing removed in two days. Diagnosis Primary Impression: Inflamed sebaceous cyst Referrals: Primary Care Physician Scripts Sulfamethoxazole-Trimethoprim (Bactrim DS) 800-160 Mg Tab 1 TAB PO BID for Infection, #20 TAB 0 Refills Prov: Karime Zaidi 06/27/17 Disposition: 01 DISCHARGE HOME Condition: Stable Karime Zaidi Jun 27, 2017 17:25
== END 2017-06-27 17:37 | disposition home or self-care (01) ==
LOC: PHEFT 14:59
DX: L72.3 Sebaceous cyst (principal); L02.11 Cutaneous abscess of neck; I10 Essential (primary) hypertension; F17.200 Nicotine dependence, unspecified, uncomplicated
CPT/HCPCS: 10061